=== PATIENT | male | born 1970 | race Caucasian/White ===

== ENCOUNTER 2016-11-05 15:29 | Emergency (ER) | payer BC ==
[~2016-11-05] VITALS: Ht 182.9 cm; Wt 87.9 kg
[~2016-11-05 15:29] MED LIST: ALBUAER2 INH; CIPR-255 PO; FERR325T51 PO
[2016-11-05 15:39] VITALS: TEMP 36.8; Ht 182.9 cm; Wt 87.9 kg
[2016-11-05] MEDS ORDERED: VNTHFA/IN INH (15:50)
[2016-11-05] MEDS ORDERED: LORA-741 PO (15:52)
[2016-11-05] MEDS ORDERED: FEXO1TAB49 PO (15:52)
[2016-11-05] MEDS ORDERED: ZOLP5TAB PO (15:52)
--- NOTE | 2016-11-05 16:22 | EMERGENCY ROOM VISIT NOTE ---
ED Visit Note First contact with patient: 15:47 CHIEF COMPLAINT: Puncture wound left index finger HISTORY OF PRESENT ILLNESS: This 45-year-old male presents the ER with chief complaint of a puncture wound to his left index finger. The patient states that he was backing out a screw with a screwdriver and the screwdriver slipped off the screw any thinks it went through the distal portion of his left index finger. The patient states that it bled initially but it has now stopped. He has a slight tingling sensation in the tip of his finger. He thinks that the drill "bounced off the bone". She is tetanus is up-to-date. The patient is right-hand dominant. REVIEW OF SYSTEMS: 6 system review was performed and was negative unless stated otherwise in history of present illness. PMH: The patient is healthy; asthma, appendectomy, right thumb surgery, right knee surgery, anemia SOCIAL HISTORY: Patient lives with his family. The patient denies any tobacco use but admits to occasional alcohol use. PHYSICAL EXAM: Vital Signs: Were reviewed Reviewed Nurse's notes. GENERAL: 45- year-old male appears in no acute distress. MENTAL Status: Alert and oriented 3. LEFT INDEX FINGER: There is a small puncture wound on the on the medial palmar aspect which there is no active bleeding. There is a smaller puncture wound on the lateral without any active bleeding. The patient is able to flex and extend his finger without difficulty. EMERGENCY DEPARTMENT COURSE: The patient was evaluated. The patient was offered pain medication but declined. Wounds were thoroughly cleansed with normal saline. A bandage was applied. X-ray of the left index finger was ordered and interpreted by myself without any evidence of fracture or foreign body. The patient was informed of the findings. Antibiotic ointment and a bandage was applied. The patient was informed that he will be placed on Augmentin prophylactically. The patient was discharged home in stable condition DIAGNOSIS: Puncture wound of the left index finger DISCHARGE INSTRUCTIONS: Antibiotic ointment and a bandage for 2-3 days. Take Augmentin as prescribed. Any signs of infection, follow-up with your family doctor or return to ER. Current/Historical Medications Scheduled Fexofenadine Hcl (Helen Allergy), 1 TAB PO DAILY Lorazepam (Ativan), 0.5 MG PO PRN UD Scheduled PRN Albuterol Hfa (Ventolin Hfa), 2 PUFFS INH QID PRN for SOB/Wheezing Zolpidem Tartrate (Ambien), 5 MG PO HS PRN for Sleep Allergies Coded Allergies: Cephalosporins (Verified Adverse Reaction, Mild, MEFOXIN-ITCHING (MAY BE DUE TO TORADOL,BODYWASH,DETERGENT), 11/05/16) Ketorolac (Verified Adverse Reaction, Mild, ITCHING/RASH (MAY BE DUE TO MEFOXIN,BODYWASH,DETERGENT), 11/05/16) Vital Signs Date Time Temp Pulse Resp B/P Pulse Ox O2 Delivery O2 Flow Rate FiO2 11/05/16 15:39 36.8 60 18 125/74 97 Room Air Departure Information Referrals Siddharth Turk M.D. (PCP) Patient Instructions My [facility]
[2016-11-05] MEDS ORDERED: AMOX875T PO (16:24)
[2016-11-05 16:28] VITALS: BP 117/66; PULSE 56; O2SAT 94
--- NOTE | 2016-11-05 16:37 | DIAGNOSTIC IMAGING REPORT ---
LEFT FINGER(S) MIN 2 VIEWS ROUTINE CLINICAL HISTORY: Puncture wound left index finger COMPARISON: None FINDINGS: Alignment of the left second finger is anatomic. There is no acute fracture or radiopaque foreign body. A bandage is noted on the second digit. A 4 mm lucency within the distal aspect of the proximal phalanx is of doubtful significance. IMPRESSION: No acute fracture or radiopaque foreign body within the left second finger. Electronically signed by: Juan Billings M.D. 11/05/2016 4:35 PM Dictated Date/Time: 11/05/2016 4:33 PM
== END 2016-11-05 16:29 | disposition home or self-care (01) ==
LOC: C.EDB 15:31 → C.EDD 16:29
DX: S61.231A Puncture wound without foreign body of left index finger without damage to nail, initial encounter (principal); W29.8XXA Contact with other powered hand tools and household machinery, initial encounter; J45.909 Unspecified asthma, uncomplicated; Z90.49 Acquired absence of other specified parts of digestive tract

== ENCOUNTER → 2017-11-16 | Day surgery (SDC) | payer OTHER ==
[2017-11-10 12:37] VITALS: Ht 182.9 cm; Wt 84.1 kg
[~2017-11-16] VITALS: Ht 182.9 cm; Wt 84.1 kg
[~2017-11-16] MED LIST changes: -ALBUAER2 INH; +ATROPINE SULFATE 0.1 MG/ML 5ML SYR IV PRN; +BUPIVACAINE/EPINEPHRINE 0.25% 1:200,000 30 ML VIAL ONE; +CEFAZOLIN 2000MG IV PUSH 10 ML IV SCH; -CIPR-255 PO; +CLINDAMYCIN PHOS 150 MG/ML 2 ML VIAL IV SCH; +DEXAMETHASONE SOD INJ 4 MG/ML VIAL ONE; +EpHEDrine SULFATE INJ 50 MG/ML AMP IV PRN; +EpINEphrine INJ 1MG/ML AMP 1 MG/ML AMP ONE; +FENTANYL CITRATE INJ 50 MCG/1 ML 2 ML VIAL IV PRN; +FENTANYL CITRATE INJ 50 MCG/1 ML 2 ML VIAL ONE; -FERR325T51 PO; +GLYCOPYRROLATE INJ 0.2 MG/ML VIAL ONE; +KETO10TA PO; +LACTATED RINGER'S 1000ML 1,000 ML IV SCH; +LIDOCAINE HCL 2% 2 ML VIAL (20MG/ML) ONE; +LORA-741 PO; +MIDAZOLAM HCL 1 MG/ML 2ML VIAL ONE; +MULTTAB58 PO; +NEOSTIGMINE METHYLSULFATE 5 MG/5 ML SYR ONE; +ONDANSETRON INJ 2 MG/ML 2 ML VIAL IV PRN; +ONDANSETRON INJ 2 MG/ML 2 ML VIAL ONE; +OXYC-57 PO; +OXYCODONE/ACETAMINOPHEN 5-325 TAB PO PRN; +PROPOFOL IV EMULSION 10 MG/ML 20 ML VIAL IV ONE; +ROPIVACAINE 0.5% 5 MG/ML 30 ML VIAL ONE; +SODIUM CHLORIDE 0.9% 1000ML 1,000 ML IV SCH; +VNTHFA/IN INH; +ZOLP5TAB PO
--- NOTE | 2017-11-16 12:32 | History & Physical Bridge - SC ---
H&P Re-Evaluation Bridge Note: I have examined the patient, reviewed the History & Physical and in the interval since the performance of the History & Physical I have noted the following changes of clinical significance: No changes noted
--- NOTE | 2017-11-16 16:08 | [facility] Post Operative Brief Note ---
Immediate Operative Summary Operative Date Nov 16, 2017. Pre-Operative Diagnosis Right Shoulder Detachment of Glenoid Labrum Post-Operative Diagnosis Same Procedure(s) Performed Right Shoulder Arthroscopic Posterior Labral Repair Surgeon Dr. Clark Dust Box Worker Surgeon(s) Stephanie Walden PA-C Estimated Blood Loss 5ml Findings Consistent with Post-Op Diagnosis Specimens None Drains None Anesthesia Type General Regional Complication(s) none Disposition Disposition: Recovery Room / PACU
--- NOTE | 2017-11-16 16:25 | Discharge Instructions-SurgCtr ---
Discharge Instructions Date of Service Nov 16, 2017. Visit Reason for Visit: Right Shoulder Detachment Of Glenoid Labrum Discharge Discharge Diagnosis / Problem: SAME ABOVE Discharge Goals Goal(s): Decrease discomfort, Improve function Activity Recommendations Activity Limitations: as noted below Lifting Limitations: until after follow-up appointment Exercise/Sports Limitations: until after follow-up appointment Shower/Bathe: tomorrow Anesthesia . Post Anesthesia Instructions: If you have had General Anesthesia or IV Sedation: * Do not drive today. * Resume driving when surgeon permits. * Do not make important decisions or sign legal documents today. * Call surgeon for: 1. Temperature elevations greater than 101 degrees F. 2. Uncontrollable pain. 3. Excessive bleeding. 4. Persistent nausea and vomiting. 5. Medication intolerance (nausea, vomiting or rash). * For nausea and vomiting use only clear liquids such as: tea, soda, bouillon until nausea subsides, then gradually increase diet as tolerated. * If you have any concerns or questions, call your surgeon's office. If physician is unavailable and it is an emergency, call 911 or go to the nearest emergency room. . Instructions / Follow-Up Instructions / Follow-Up MEDICATIONS: * Resume previous medications unless instructed otherwise by your surgeon. * Always take pain medication on a full stomach or with food to avoid upset stomach. * Do not drink alcohol or drive while taking narcotics. * Ibuprofen or Tylenol may be taken if narcotic not needed. SPECIAL CARE INSTRUCTIONS: __ None _X_ Keep extremity elevated and iced x 48 hours; apply ice 20-30 minutes 8-10 times/day. May remove at night. _X_ Sling (MAY REMOVE AFTER 48 HOURS ONLY TO SHOWER AND THERAPY) _X_24 hrs/day __ Remove at night __ Shoulder Immobilizer __ 24 hrs/day __ Remove at night _x_ Dressing __ Maintain until seen in office, may shower with plastic over site _x_ Remove dressings in 24-48 hours and then may shower _x_ Cover incisions with band-aids after showering __ Do not remove steri-strips Call physician if chills or temperature rises above 102 degrees or pain unrelieved by prescribed pain medications at . . Diet Recommendations Home Diet: no limitations Fluid Restriction: None Procedures Procedures Performed: Right Shoulder Arthroscopic Posterior Labral Repair Pending Studies Studies pending at discharge: no Work Instructions Return To Work: after follow-up Medical Emergencies . Who to Call and When: Medical Emergencies: If at any time you feel your situation is an emergency, please call 911 immediately. . Non-Emergent Contact Non-Emergency issues call your: Primary Care Provider Call Non-Emergent contact if: you have a fever, temperature is above 101.5 . . "Provider Documentation" section prepared by Bebeto Walden. .
[2017-11-16 17:09] VITALS: TEMP 36.6
[2017-11-16 17:52] VITALS: BP 131/81; PULSE 61; O2SAT 99
--- NOTE | 2017-11-16 17:57 | Anesthesia Progress Nt - [facility] ---
Anesthesia Post Op Note Date & Time Nov 16, 2017 at 17:57 Vital Signs Pain Intensity: 1 Vital Signs Past 12 Hours Date Time Temp Pulse Resp B/P (MAP) Pulse Ox O2 Delivery O2 Flow Rate FiO2 11/16/17 17:52 61 16 131/81 (98) 99 Room Air 11/16/17 17:09 36.6 61 16 141/88 (105) 100 Room Air 11/16/17 17:01 59 9 11/16/17 17:01 58 9 140/84 98 11/16/17 16:58 36.3 59 12 140/84 97 Room Air 11/16/17 16:56 73 14 139/85 97 11/16/17 16:56 70 14 11/16/17 16:51 67 14 144/88 100 11/16/17 16:51 67 14 11/16/17 16:46 63 13 146/79 100 11/16/17 16:46 63 13 11/16/17 16:41 72 14 11/16/17 16:41 72 14 150/83 100 11/16/17 16:36 150/83 11/16/17 16:31 73 9 11/16/17 16:31 73 9 100 11/16/17 16:30 147/73 11/16/17 16:26 70 20 140/69 96 11/16/17 16:26 71 20 11/16/17 16:23 141/87 11/16/17 16:23 36.6 77 12 141/87 96 Mask 6 11/16/17 15:10 0 11/16/17 15:06 130/72 11/16/17 15:02 62 15 100 11/16/17 15:02 63 16 100 11/16/17 15:01 130/72 11/16/17 14:57 70 24 99 11/16/17 14:57 68 11/16/17 14:56 128/75 11/16/17 14:55 64 16 128/75 (92) 100 Mask 4 11/16/17 14:47 60 11/16/17 14:47 73 11/16/17 14:42 61 11/16/17 14:32 72 11/16/17 14:32 57 11/16/17 14:27 63 11/16/17 12:41 36.9 67 16 109/74 (86) 97 Room Air Notes Mental Status: alert / awake / arousable, participated in evaluation Pt Amnestic to Procedure: Yes Nausea / Vomiting: adequately controlled Pain: adequately controlled Airway Patency, RR, SpO2: stable & adequate BP & HR: stable & adequate Hydration State: stable & adequate Anesthetic Complications: no major complications apparent
--- NOTE | 2017-11-16 20:33 | OPERATIVE REPORT ---
DATE OF OPERATION: 11/16/2017 PREOPERATIVE DIAGNOSIS: Posterior labral tear of the right shoulder. POSTOPERATIVE DIAGNOSIS: Same. PROCEDURE: Right shoulder diagnostic arthroscopy with limited debridement and posterior labral repair. SURGEON: Rudi Clark DO. SUPERVISOR PRE WAVE: Jake Walden PA-C, whose assistance was necessary for positioning of the arm and helping with arthroscopic instrumentation and closure. ANESTHESIA: General with a right interscalene nerve block. COMPLICATIONS: None. CONDITION: Stable to PACU. INDICATIONS: Saleem is a pleasant 46-year-old male who presented to my office with complaints of several year history of right shoulder pain. He was able to posteriorly subluxate his shoulder voluntarily. He was also having pain holding heavy objects away from his body. MRI and clinical examination were diagnostic for posterior labral tear. After failing conservative treatment, he elected to undergo arthroscopy. OPERATION AND FINDINGS: On 11/16/2017, he arrived at [facility] for the above procedure. He was seen in the preoperative holding area and the operative extremity was identified and signed. He was given preoperative antibiotic and a right interscalene nerve block. He was taken back to the operating room, laid on the table in supine position and put under general anesthesia. He was then put in the lateral decubitus position, the right shoulder was prepped and draped in sterile fashion. Time-out was done and the patient and operative extremity was properly identified. The right arm was brought out through an Arthrex 3-point distracter. A scope was placed in the posterior portal. Diagnostic arthroscopy showed no cartilage damage to the humeral head or the glenoid. The supraspinatus, infraspinatus, teres minor and subscapularis were all checked and intact. There was significant fraying of the posterior labrum. Posterior superior labrum was detached from the glenoid. A 7 mm cannula was placed in the anterior portal. The scope was then placed in the anterior portal and continued diagnostic arthroscopy confirmed a tearing of the posterior superior labrum. A 7 mm cannula was placed in the posterior portal. A shaver was used to do a limited debridement of the labrum to debride it back to stable margins. The posterior superior labrum was detached from the glenoid. A percutaneous 5 mm cannula was placed. The glenoid was then prepared with a curette and a ball rasp to take it down the bleeding bone. The labrum was then fixed with Arthrex 2.9 mm PushLock anchors and suture tapes in a luggage tag fashion. One anchor was placed at the 1 o'clock position and another anchor was placed at 2:30 position. This completed the repair of the tear. Multiple pictures were taken. Arthroscopic instruments were then removed from the shoulder. Portal sites were closed with 3-0 nylon. He was then placed in a soft dressing and regular arm sling. He was then extubated, transferred to a litter and taken to the postanesthesia care unit in stable condition. He tolerated the procedure well. I attest to the content of the Intraoperative Record and any orders documented therein. Any exception s are noted below.
== END | disposition home or self-care (01) ==
LOC: X.SURG 12:24
PROVIDERS: ATTEND Orthopaedic Surgery
DX: M24.111 Other articular cartilage disorders, right shoulder (principal); Z80.0 Family history of malignant neoplasm of digestive organs; J45.909 Unspecified asthma, uncomplicated

== ENCOUNTER 2020-04-29 17:50 | Inpatient (IN) ==
--- OUTSIDE RECORDS SUMMARY | 2020-04-29 17:52 | External Medical Summary | Continuity of Care Document ---
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
--- OUTSIDE RECORDS SUMMARY | 2020-04-29 17:53 | External Medical Summary | Continuity of Care Document ---
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
[2020-04-29] MEDS ORDERED: ONDANSETRON INJ 2 MG/ML 2 ML VIAL IV STA (18:17)
[2020-04-29] MEDS ORDERED: SODIUM CHLORIDE 0.9% 1000ML 1,000 ML IV ONE (18:17)
[2020-04-29] MEDS ORDERED: HYDROmorphone INJ 1 MG/ML SYRINGE IV STA (18:31)
--- NOTE | 2020-04-29 19:04 | Emergency Department Note ---
History of Present Illness General Chief Complaint: Abnormal Labs/Diagnostic Testing Stated Complaint: REFERRED FOR ABNORMAL CT SCAN Time Seen by Provider: 04/29/20 18:17 History of Present Illness Provider Complaint: abdominal pain Onset (ago): 3 day(s) Pain Consistency: constant Location: RUQ and epigastric Radiation: back Migration to: no migration Severity: moderate Maximum Pain Intensity: 7 Current Pain Intensity: 9 Quality: + stabbing and + sharp Relieved By: + nothing Exacerbated By: + nothing Associated Symptoms: + nausea and + chills; no vomiting, no fever, no dysuria, no hematemesis, no hematochezia, no melena and no hematuria Patient states he had an outpatient appointment with his PCP today who ordered an outpatient blood work and CAT scan which showed he had pancreatitis and subsequently came to the emergency department. He states he drinks approximately 1 beer per day. Home Medications Home Medications Medication Instructions Recorded Confirmed Type albuterol sulfate [ProAir HFA] 2 puff INHALATION QID PRN 11/24/18 11/24/18 History lorazepam 0.5 mg PO DAILY PRN 11/24/18 11/24/18 History ondansetron 4 mg PO Q8H PRN #30 tab 11/24/18 Rx Allergies Allergy/AdvReac Type Severity Reaction Status Date / Time Cephalosporins AdvReac Mild MEFOXIN-ITCHING Verified 11/24/18 19:17 (MAY BE DUE TO TORADOL,BODYWASH,DETERGENT) ketorolac AdvReac Mild ITCHING/RASH Verified 11/24/18 19:17 (MAY BE DUE TO MEFOXIN,BODYWASH,DETERGENT) Past Med/Surg History Medical History (Updated 04/29/20 @ 19:40 by Kirk Sandhu) Colitis (Acute) No pertinent family history No significant past medical history Surgical History (Updated 11/24/18 @ 18:55 by Gerda Olsen) Hx of appendectomy (Resolved) Social History Feels Safe at Home: Yes Smoking Status: Never smoker Review of Systems A total of 10 systems reviewed and were otherwise negative Physical Exam Vital Signs: Vital Signs - 24 hr 04/29/20 17:55 Temperature 36.8 C Temperature Source Oral Pulse Rate 72 Respiratory Rate 20 Respiratory Effort / Characteristics Non-Labored Sponta neous Respiratory Depth Normal Respiratory Patter n Regular Blood Pressure 139/82 Blood Pressure Olga n 101 Blood Pressure Pos ition Sitting Pulse Oximetry 99 Oxygen Delivery Me thod Room Air Sepsis Recent Feve r Within 48 Hours No Sepsis New/Unexpla ined Change in Men bryce Status No Sepsis Action Take n by Nursing No Action Required Physical Exam: Physical Exam GENERAL: He is oriented to person, place, and time. He appears well-developed and well-nourished. He does not appear distressed. HENT: Exam performed. - Head: Normocephalic and atraumatic. - Right Ear: External ear normal. No mastoid tenderness. - Left Ear: External ear normal. No mastoid tenderness. - Mouth/Throat: The oropharynx is clear and moist. No trismus in the jaw. No dental abscesses or uvula swelling. No oropharyngeal exudate or tonsillar abscesses. EYES: Conjunctivae and EOM are normal. Pupils are equal, round, and reactive to light. Right eye exhibits no discharge. Left eye exhibits no discharge. No scleral icterus. NECK: Normal range of motion. Neck supple. No JVD present. No spinous process tenderness present. No carotid bruit present. No rigidity. No tracheal deviation and normal range of motion present. No Brudzinski's sign and no Kernig's sign noted. CV: Normal rate, regular rhythm, normal heart sounds and intact distal pulses. There is no peripheral edema. Palpable radial pulses bue. PULM/CHEST: Effort normal and breath sounds normal. No respiratory distress. No stridor. He has no wheezes. He has no rales. - Chest Wall: He exhibits no tenderness. ABD: The abdomen is soft. Bowel sounds are normal. He has no distension. No mass is present. There is tenderness to palpation of the epigastric area. There is no rebound, no guarding, no Smart's sign and no tenderness at McBurney's point. Rovsig negative. MUSC/SKEL: Normal range of motion. There is no peripheral edema, tenderness or deformity. LYMPH: No cervical adenopathy. NEURO: He is alert and oriented to person, place, and time. He has normal strength. No cranial nerve deficit or sensory deficit. Coordination and gait normal. GCS eye subscore is 4. GCS verbal subscore is 5. GCS motor subscore is 6. Cerebellar tests wnl. SKIN: Skin is warm and dry. He is not diaphoretic. PSYCH: He has a normal mood and affect. Behavior is normal. Judgment and thought content normal. Course Course 1819: The patient was evaluated in room C6. A complete history and physical exam was performed. Patient was able to pull up his results on his phone. Patient had a CAT scan which showed "pancreatitis with reactive change to the adjacent colon". He had blood work which showed a sodium of 140, potassium 4.5, chloride 101, CO2 27, BUN 15, creatinine 1.1, glucose 111, AST 20, ALT 26, alk phos 89, and total bilirubin 0.4. at bedside states this patient is scheduled to have an ultrasound tomorrow however his pain was so bad he came to the emergency department today. We will plan on admitting the patient will obtain a ultrasound of his right upper quadrant to make sure there is no gallstones causing his pancreatitis. 193: Vital signs stable. Lipase 533. Ultrasound shows no gallstones or dilatation of ducts. Patient will be admitted for pancreatitis. Discussed with Dr. Cramer [facility] hospitalist who admitted the patient. Administered Medications Discontinued Medications Hydromorphone HCl (Dilaudid) 1 mg IV NOW STA Stop: 04/29/20 18:32 Last Admin: 04/29/20 18:56 Dose: 1 mg Documented by: [id number] Sodium Chloride (Nss 1000ml) 1,000 mls @ 999 mls/hr IV .Q1H1M ONE Stop: 04/29/20 19:17 Last Admin: 04/29/20 18:55 Dose: 999 mls/hr Documented by: [id number] Ondansetron HCl (Zofran) 4 mg IV NOW STA Stop: 04/29/20 18:18 Last Admin: 04/29/20 18:56 Dose: 4 mg Documented by: [id number] Medical Decision Making Laboratory Data Result diagrams: 04/29/20 19:00 04/29/20 19:00 Lab Results 04/29/20 04/29/20 Range/Units 19:00 19:00 WBC 11.53 H (4.8-10.8) K/uL RBC 4.40 L (4.7-6.1) M/uL Hgb 13.5 L (14.0-18.0) g/dL Hct 38.8 L (42-52) % MCV 88.2 (80-100) fL MCH 30.7 (25-34) pg MCHC 34.8 (32-36) g/dL RDW Std Deviation 40.8 (36.4-46.3) fL RDW Coeff of Kosta 12.7 (11.5-14.5) % Plt Count 166 (130-400) K/uL MPV 10.3 (7.4-10.4) fL Immature Gran % (Auto) 0.2 % Neut % (Auto) 79.4 % Lymph % (Auto) 12.1 % Bergen % (Auto) 7.5 % Eos % (Auto) 0.6 % Baso % (Auto) 0.2 % Neut # (Auto) 9.17 H (1.4-6.5) K/uL Lymph # (Auto) 1.39 (1.2-3.4) K/uL Bergen # (Auto) 0.86 H (0.11-0.59) K/uL Eos # (Auto) 0.07 (0-0.5) K/uL Baso # (Auto) 0.02 (0-0.2) K/uL Immature Gran # (Auto) 0.02 (0.00-0.02) K/uL Sodium 134 L (136-145) mmol/L Potassium 3.6 (3.5-5.1) mmol/L Chloride 102 (98-107) mmol/L Carbon Dioxide 28 (21-32) mmol/L Anion Gap 5.0 (3-11) BUN 12 (7-18) mg/dl Creatinine 1.08 (0.6-1.4) mg/dl Est Cr Clr Drug Dosing 92.8 ml/min Est GFR ( Amer) 94.2 Est GFR (Non-Af Amer) 81.3 BUN/Creatinine Ratio 11.2 (10-20) Glucose 119 H (70-99) mg/dl Calcium 8.6 (8.5-10.1) mg/dl Total Bilirubin 0.6 (0.2-1) mg/dl Direct Bilirubin < 0.1 (0-0.2) mg/dl AST 14 L (15-37) U/L ALT 30 (12-78) U/L Alkaline Phosphatase 88 (45-117) U/L Total Protein 7.7 (6.4-8.2) gm/dl Albumin 3.7 (3.4-5.0) gm/dl Lipase 566 H (73-393) U/L Imaging Data Radiologist's Impression: US gallbladder HISTORY: Pain. Nausea. ro rocio COMPARISON: None. FINDINGS: Normal gallbladder. Common bile duct 5 mm. Slight fatty replacement of the liver. Pancreas and right kidney are unremarkable. IMPRESSION: 1. Minimal fatty infiltration the liver. 2.. Otherwise negative study. ACT 112: Negative or not required by law. The above report was generated using voice recognition software. It may contain grammatical, syntax or spelling errors. Electronically signed by: Kamar Moreira M.D. 04/29/2020 7:17 PM Dictated: 04/29/201915 Transcribed: 04/29/201915 [facility] Narrative 1819: The patient was evaluated in room C6. A complete history and physical exam was performed. Patient was able to pull up his results on his phone. Patient had a CAT scan which showed "pancreatitis with reactive change to the adjacent colon". He had blood work which showed a sodium of 140, potassium 4.5, chloride 101, CO2 27, BUN 15, creatinine 1.1, glucose 111, AST 20, ALT 26, alk phos 89, and total bilirubin 0.4. at bedside states this patient is scheduled to have an ultrasound tomorrow however his pain was so bad he came to the emergency department today. We will plan on admitting the patient will obtain a ultrasound of his right upper quadrant to make sure there is no gallstones causing his pancreatitis. 1937: Vital signs stable. Lipase 533. Ultrasound shows no gallstones or d ilatation of ducts. Patient will be admitted for pancreatitis. Discussed with Dr. Shoaib Villa hospitalist who admitted the patient. Impression & Plan Acute pancreatitis Discharge Plan Visit Data Chief Complaint: Abnormal Labs/Diagnostic Testing Stated Complaint: REFERRED FOR ABNORMAL CT SCAN ED Provider: Kirk Sandhu Discharge Problem: Acute pancreatitis Patient Disposition: Being Evaluated by Hospitalist Forms Stand Alone Forms: [employer] [facility] [employer] Prescriptions Prescriptions: No Action lorazepam 1 mg tablet 0.5 mg PO DAILY PRN (Reason: Anxiety) RF: 0 albuterol sulfate [ProAir HFA] 90 mcg/actuation HFA aerosol inhaler 2 puff Inhalation QID PRN (Reason: Shortness Of Breath) RF: 0 ondansetron 4 mg tablet,disintegrating 4 mg PO Q8H PRN (Reason: nausea and vomiting) Qty: 30 RF: 0 Referrals Referrals: Siddharth Turk MD [Primary Care Provider] - Discharge Problem: Acute pancreatitis Qualifiers: Pancreatitis type: unspecified pancreatitis type Acute pancreatitis complication: unspecified Qualified Code(s): K85.90 - Acute pancreatitis without necrosis or infection, unspecified
[2020-04-29 19:08] LABS: Basophils # (auto) 0.02 K/uL (0-0.2); Basophils % (auto) 0.2 %; Eosinophils # (auto) 0.07 K/uL (0-0.5); Eosinophils % (auto) 0.6 %; Hematocrit (blood only) 38.8 % (42-52); Hemoglobin 13.5 g/dL (14.0-18.0); Immature Granulocytes # (auto) 0.02 K/uL (0.00-0.02); Immature Granulocytes % (auto) 0.2 %; Lymphocytes # (auto) 1.39 K/uL (1.2-3.4); Lymphocytes % (auto) 12.1 %; Mean Corpuscular Hemoglobin 30.7 pg (25-34); Mean Corpuscular Hgb Conc 34.8 g/dL (32-36); Mean Corpuscular Volume 88.2 fL (80-100); Mean Platelet Volume 10.3 fL (7.4-10.4); Monocytes # (auto) 0.86 K/uL (0.11-0.59); Monocytes % (auto) 7.5 %; Neutrophils # (auto) 9.17 K/uL (1.4-6.5); Neutrophils % (auto) 79.4 %; Platelet Count 166 K/uL (130-400); RDW Coefficient of Variation 12.7 % (11.5-14.5); RDW Standard Deviation 40.8 fL (36.4-46.3); White Blood Count 11.53 K/uL (4.8-10.8)
--- NOTE | 2020-04-29 19:18 | Ultrasound Report ---
US gallbladder HISTORY: Pain. Nausea. ro rocio COMPARISON: None. FINDINGS: Normal gallbladder. Common bile duct 5 mm. Slight fatty replacement of the liver. Pancreas and right kidney are unremarkable. IMPRESSION: 1. Minimal fatty infiltration the liver. 2.. Otherwise negative study. ACT 112: Negative or not required by law. The above report was generated using voice recognition software. It may contain grammatical, syntax or spelling errors. Electronically signed by: Kamar Moreira M.D. 04/29/2020 7:17 PM
[2020-04-29 19:24] LABS: Alanine Aminotransferase 30 U/L (12-78); Albumin Level 3.7 gm/dl (3.4-5.0); Aspartate Aminotransferase 14 U/L (15-37); BUN Creatinine Ratio 11.2 (10-20); Bilirubin Direct < 0.1 mg/dl (0-0.2); Blood Urea Nitrogen 12 mg/dl (7-18); Calcium 8.6 mg/dl (8.5-10.1); Carbon Dioxide 28 mmol/L (21-32); Chloride 102 mmol/L (98-107); Creatinine Clr Calc Pharmacy 92.8 ml/min; Est GFR (African American) 94.2; Est GFR (Non-African American) 81.3; Glucose 119 mg/dl (70-99); Lipase 566 U/L (73-393); Potassium 3.6 mmol/L (3.5-5.1); Sodium 134 mmol/L (136-145)
[2020-04-29 19:27] LABS: Alkaline Phosphatase 88 U/L (45-117); Bilirubin,Total 0.6 mg/dl (0.2-1); Total Protein 7.7 gm/dl (6.4-8.2)
--- NOTE | 2020-04-29 20:11 | History & Physical Report ---
Date of Service April 29, 2020 Assessment & Plan (1) Acute pancreatitis: -Admit to [facility] -Patient presenting from home with reports of abdominal pain; outpatient CT scan showing evidence of pancreatitis -In the ED, lipase 566, gallbladder ultrasound unremarkable -Etiology of pancreatitis unclear however possibly secondary to alcohol use (patient reports drinking 1 beer nightly about 5 to 6 days/week, last drink being 2 days ago) -Medications reviewed without identifiable cause -Check triglycerides in the a.m. -LFTs and gallbladder imaging unremarkable -Supportive care with n.p.o. and IVF -GI consult, input appreciated (2) DVT prophylaxis: -SCDs, ambulate History of Present Illness Chief Complaint: Abdominal pain Primary Care Provider: Siddharth Turk MD 49-year-old male with PMH prediabetes, intermittent asthma, environmental allergies, no problems to below who presents to the ED for evaluation abdominal pain. Patient reports his symptoms began about 2 days ago. He reports the pain has mostly been located in his epigastric area with some radiation around the ribs and into his back. Initially, symptoms were mild however have been progressively getting worse. Patient was seen by PCP this morning and CT scan was ordered that showed signs of pancreatitis. Patient reports his pain significantly worsened throughout the day today. Patient reports nausea however no vomiting. Denies bright red bleeding per rectum or dark tarry stools. No fevers or chills. Patient reports 1 beer per night, about 5-6 nights per week. Last drink being 2 days ago. Patient denies any new medications. No chest pain or shortness of breath. Denies lightheadedness, dizziness, diaphoresis, syn copal events. No urinary symptoms. In the ED, labs show mildly elevated lipase at 566. Gallbladder ultrasound was unremarkable. Patient received IV Dilaudid, IV Zofran, IVF. Allergies Allergy/AdvReac Type Severity Reaction Status Date / Time Cephalosporins AdvReac Mild MEFOXIN-ITCHING Verified 04/29/20 20:49 (MAY BE DUE TO TORADOL,BODYWASH,DETERGENT) ketorolac AdvReac Mild ITCHING/RASH Verified 04/29/20 20:49 (MAY BE DUE TO MEFOXIN,BODYWASH,DETERGENT) Home Medications Home Medications Medication Instructions Recorded Confirmed Type albuterol sulfate [ProAir HFA] 2 puff INHALATION QID PRN 11/24/18 04/29/20 History azelastine 2 spray INTRANASAL HS 04/29/20 04/29/20 History cetirizine [Zyrtec] 10 mg PO HS 04/29/20 04/29/20 History ferrous sulfate [iron] 325 mg PO HS 04/29/20 04/29/20 History fluticasone propionate 1 spray INTRANASAL HS 04/29/20 04/29/20 History lorazepam 0.5 mg PO DAILY PRN 04/29/20 04/29/20 History zolpidem 10 mg PO HS PRN 04/29/20 04/29/20 History Past Med/Surg History Medical History Environmental allergies Eosinophilic esophagitis Intermittent asthma Prediabetes Surgical History H/O adenoidectomy H/O arthroscopic knee surgery History of arthroscopy of right shoulder Hx of appendectomy (Resolved) Family History Mother Lung cancer Social History Preferred Language: Palestinian Communication Ability: Effective Director Of Infection Prevention Required: No Beliefs That Will Affect Care: None Current Living Situation: Spouse Other Information That Helps Us Care for You: No Feels Safe at Home: Yes Safety Concerns: Feels Safe At This Time Smoking Status: Never smoker Do You Dip or Chew Tobacco: No ; Second Hand E xposure: No ; Hx Alcohol Use: Yes Alcohol type: beer Alcohol Intake Frequency: Weekly Hx Substance Use: No Review of Systems Review of Systems: ROS per HPI, all other systems reviewed and negative Physical Exam Physical Exam: please refer to Dr. Jacob's addendum for physical exam Results & Data Results & Data ([facility]) Vital Signs (Past 12 Hours) Vital Signs Temp Pulse Resp BP Pulse Ox 04/29/20 17:55 36.8 C 72 20 139/82 99 Laboratory Results Short CBC 04/29/20 Range/Units 19:00 WBC 11.53 H (4.8-10.8) K/uL Hgb 13.5 L (14.0-18.0) g/dL Hct 38.8 L (42-52) % Plt Count 166 (130-400) K/uL BMP 07/15/20 19:00 Sodium 134 L Potassium 3.6 Chloride 102 Carbon Dioxide 28 BUN 12 Creatinine 1.08 Glucose 119 H Calcium 8.6 Liver Function 04/29/20 Range/Units 19:00 Total Bilirubin 0.6 (0.2-1) mg/dl Direct Bilirubin < 0.1 (0-0.2) mg/dl AST 14 L (15-37) U/L ALT 30 (12-78) U/L Alkaline Phosphatase 88 (45-117) U/L Albumin 3.7 (3.4-5.0) gm/dl Diagnostic Findings CT ABD/PELVIS IMPRESSION (performed at [facility] 04/29/2020): Inflammatory Stranding within the Left Upper Quadrant Involving the Pancreatic Tail and Colon at the Splenic Flexure. Favor Pancreatitis with Reactive Change of the Adjacent Colon. GALLBLADDER ULTRASOUND IMPRESSION: 1. Minimal fatty infiltration the liver. 2.. Otherwise negative study. Supervising Physician Co-Signing Physician Notes Patient is a 49-year-old male with history of prediabetes, asthma, allergies and other medical problems presents with history of abdominal pain since 2 days duration. He reports associated nausea but no vomiting. He admits to noticing a low-grade fever today. His outpatient CAT scan suggestive of acute pancreatitis. His lipase is noted to be 566. Gallbladder ultrasound showed minimal fatty infiltration of the liver. Patient admits to drinking alcohol--1 beer per night. Denies any history of pancreatitis in the past. Please review HPI for complete details of presentation Physical Exam: Vitals signs as noted above General Appearance:Moderately built and nourished, no apparent distress Head: normocephalic, Atraumatic Eyes: normal inspection, EOMI, PERRL Neck: supple, Trachea midline Respiratory/Chest: Normal breath sounds, CTA, No accessory muscle use Cardiovascular: S1, S2, No murmur Abdomen/GI:Soft, tender RLQ and epigastric, no guarding or rigidity noted. Bowel sounds present Extremities/Musculoskelatal:normal inspection, no edema Neurologic/Psych:AAOX3, grossly no focal neurological deficits Skin: normal color, warm Patient is admitted for management of acute pancreatitis. Likely secondary to alcohol use Will check lipid panel in a.m. LFTs within normal limits Consulted GI No obvious medications contributing to pancreatitis noted. Agree with bowel rest, IV fluids, pain control. Asthma No signs of exacerbation Continue home inhalers Mild leukocytosis Likely secondary to above No obvious source of infection Monitor I personally reviewed the record. Patient is interviewed and examined at bedside. Patient's care is coordinated with Ely Wagoner HR ADMINISTRATOR. Please refer to the documentation above for details of patient's presentation and for discussion of other issues. (1) Acute pancreatitis Acute pancreatitis complication: unspecified Pancreatitis type: unspecified pancreatitis type Qualified Code(s): K85.90 - Acute pancreatitis without necrosis or infection, unspecified
[2020-04-29] MEDS ORDERED: ONDANSETRON INJ 2 MG/ML 2 ML VIAL IV PRN (21:28)
[2020-04-29] MEDS: SODIUM CHLORIDE 0.9% 1000ML 1,000 ML IV SCH (21:43)
[2020-04-29] MEDS: MoRPHine SULFATE 4 MG/ML 1 ML CARP\\VIAL IV PRN (21:54)
[2020-04-29] MEDS: PANTOprazole 40 MG TAB PO SCH (22:16)
[2020-04-29] MEDS: ACETAMINOPHEN 325 MG TAB PO PRN (23:54)
[2020-04-30] MEDS: MoRPHine SULFATE 4 MG/ML 1 ML CARP\\VIAL IV PRN ×2 (02:15→07:43)
[2020-04-30] MEDS: SODIUM CHLORIDE 0.9% 1000ML 1,000 ML IV SCH ×2 (04:25→11:06)
[2020-04-30] MEDS: OXYCODONE HCL IR 5 MG TAB (IMMEDIATE RELEASE) PO PRN (04:29)
[2020-04-30] MEDS: PANTOprazole 40 MG TAB PO SCH (07:45)
[2020-04-30 09:15] LABS: Mean Corpuscular Hemoglobin 31.2 pg (25-34); Mean Corpuscular Volume 89.1 fL (80-100); Platelet Count 175 K/uL (130-400); RDW Coefficient of Variation 12.8 % (11.5-14.5); RDW Standard Deviation 40.9 fL (36.4-46.3); Red Blood Count 4.49 M/uL (4.7-6.1)
[2020-04-30 09:38] LABS: Albumin Level 3.3 gm/dl (3.4-5.0); BUN Creatinine Ratio 9.5 (10-20); Calcium 8.1 mg/dl (8.5-10.1); Creatinine Clr Calc Pharmacy 102.3 ml/min; Est GFR (Non-African American) 91.4; Potassium 4.1 mmol/L (3.5-5.1)
[2020-04-30 09:41] LABS: Albumin Globulin Ratio 0.8 (0.9-2); Bilirubin,Total 0.8 mg/dl (0.2-1); Globulin 4.1 gm/dl (2.5-4.0); Total Protein 7.4 gm/dl (6.4-8.2)
--- NOTE | 2020-04-30 10:15 | Gastrointestinal Consultation ---
Date of Consultation April 30, 2020 Assessment & Plan (1) Acute pancreatitis: 49 year old male with history of unspecified ALFONSO s/p negative EGD/Colon/VCE in 2012 and 2014 admitted w/ abnormal CTAP inflammatory stranding within the left upper quadrant involving the pancreatic tail and colon at the splenic flexure, favor pancreatitis with reactive change of the adjacent colon His onset and symptoms are generalized abdominal pain, food aversion, nausea w/o vomting and fevers at home Treat as pancreatitis NPO LR 200 mL/hr for 48 hours Analgesia PRN Antietmics PRN Will need OP colonoscopy and EUS in about 4-6 weeks w/ Dr. Glez Thank you for allowing us to participate in the care of this patient. Please call with any acute changes, questions or concerns. Please see addendum below with additional recommendation from my supervising physician. Supervising Physician Co-Signing Physician Notes I saw and evaluated the patient. He presents with mild elevation of his lipase inflammatory changes in the pancreatic tail and in the left colon. He notes that his pain is really unchanged since admission. Physical examination No obvious distress No scleral icterus Mild left-sided tenderness Impression: Patient presenting with inflammatory changes in the pancreatic tail and the left colon. Not certain if this is result of pancreatitis causing inflammatory changes at the splenic flexure or perhaps reticulitis causing inflammatory changes in the pancreatic tail. Patient is a non-smoker and is started no recent medications and drinks only 1 alcoholic beverage per day. As result the etiology to his pancreatic inflammation remains unclear. I would suggest further evaluation with a an MRCP if negative we would then offer outpatient endoscopic ultrasound in 4 to 6 weeks in addition to a colonoscopy to relook at his colon. In the meantime wewould suggest IV hydration, a clear liquid diet and continued antibiotic coverage. I would also suggest trying Bentyl 10 mg twice daily as this might help with his abdominal discomfort. For work-up of idiopathic pancreatitis I would also suggest an ALMA, immunoglobulin subclasses, and triglyceride level. History of Present Illness Reason for Consultation: Pancreatitis Requesting Physician: Oz Attending Physician: Joy Clinton, DO History of Present Illness 49 year old male w/ history of ALFONSO, EOE and others below admitted as OP CTAP showed pancreaitits. Pt was seen and evaluated, chart reviewed. He suggests about 1 week ago now he developed generalized abd pain. Nonspecific. Worsened in the past 24 hours. Associated with nausea. No vomiting. No change in BM. no black or bloody stools. No new medications Uses ETOH daily but rarely every has more than 1 drink. No weight loss. No new meds ABD US 2019: Normal gallbladder. Common bile duct 5 mm. Slight fatty replacement of the liver. Pancreas and right kidney are unremarkable. CTAP 2019: Inflammatory stranding within the left upper quadrant involving the pancreatic tail and colon at the splenic flexure. Favor pancreatitis with reactive change of the adjacent colon. VCE 2014: normal Colon 2014: The entire examined colon is normal to the terminal ileum, with retroflexed views of the ascending colon and rectum. - No specimens collected. EGD 2014: normal upper third of esophagus, middle third of esophagus and lower third of esophagus. Biopsied. - Z-line regular, 45 cm from the incisors. Biopsied. - Normal stomach. - Normal examined duodenum. Biopsied. - Normal examined jejunum. Biopsied. Allergies Allergy/AdvReac Type Severity Reaction Status Date / Time Cephalosporins AdvReac Mild MEFOXIN-ITCHING Verified 04/29/20 20:49 (MAY BE DUE TO TORADOL,BODYWASH,DETERGENT) ketorolac AdvReac Mild ITCHING/RASH Verified 04/29/20 20:49 (MAY BE DUE TO MEFOXIN,BODYWASH,DETERGENT) Home Medications Home Medications Medication Instructions Recorded Confirmed Type albuterol sulfate [ProAir HFA] 2 puff INHALATION QID PRN 11/24/18 04/29/20 History azelastine 2 spray INTRANASAL HS 04/29/20 04/29/20 History cetirizine [Zyrtec] 10 mg PO HS 04/29/20 04/29/20 History ferrous sulfate [iron] 325 mg PO HS 04/29/20 04/29/20 History fluticasone propionate 1 spray INTRANASAL HS 04/29/20 04/29/20 History lorazepam 0.5 mg PO DAILY PRN 04/29/20 04/29/20 History zolpidem 10 mg PO HS PRN 04/29/20 04/29/20 History Patient History Medical History Environmental allergies Eosinophilic esophagitis Intermittent asthma Prediabetes Surgical History H/O adenoidectomy H/O arthroscopic knee surgery History of arthroscopy of right shoulder Hx of appendectomy (Resolved) Family History Mother Lung cancer Social History Preferred Language: Indonesian Communication Ability: Effective Headhunter Required: No Beliefs That Will Affect Care: None Current Living Situation: Spouse Other Information That Helps Us Care for You: No Feels Safe at Home: Yes Safety Concerns: Feels Safe At This Time Smoking Status: Never smoker Do You Dip or Chew Tobacco: No ; Second Hand Exposure: No ; Hx Alcohol Use: Yes Alcohol type: beer Alcohol Intake Frequency: Weekly Hx Substance Use: No Review of Systems Constitutional: + fever, + fatigue and + anorexia; no chills Respiratory: no cough and no dyspnea Cardiovascular: no chest pain and no dyspnea Gastrointestinal: + abdominal pain and + nausea; no change in bowel habits, no blood in stools and no melena Physical Exam Constitutional: well developed and well nourished; no acute distress and not ill appearing Neck: trachea midline Gastrointestinal (Abdomen): Percussion/Palpation: + abdomen tender and abdomen soft; no guarding and abdomen not rigid Skin: no rashes, warm and dry Results & Data ([facility]) Vital Signs (Past 12 Hours) Vital Signs Temp Pulse Resp BP Pulse Ox 04/30/20 07:15 37.3 C 68 16 131/75 96 04/30/20 00:14 37.8 C H 73 14 132/73 98 Laboratory Results 04/30/20 04/30/20 04/29/20 Range/Units 08:38 08:38 19:00 WBC 12.90 H (4.8-10.8) K/uL RBC 4.49 L (4.7-6.1) M/uL Hgb 14.0 (14.0-18.0) g/dL Hct 40.0 L (42-52) % MCV 89.1 (80-100) fL MCH 31.2 (25-34) pg MCHC 35.0 (32-36) g/dL RDW Std Deviation 40.9 (36.4-46.3) fL RDW Coeff of Kosta 12.8 (11.5-14.5) % Plt Count 175 (130-400) K/uL MPV 10.0 (7.4-10.4) fL Immature Gran % (Auto) % Neut % (Auto) % Lymph % (Auto) % Lake % (Auto) % Eos % (Auto) % Baso % (Auto) % Neut # (Auto) (1.4-6.5) K/uL Lymph # (Auto) (1.2-3.4) K/uL Lake # (Auto) (0.11-0.59) K/uL Eos # (Auto) (0-0.5) K/uL Baso # (Auto) (0-0.2) K/uL Immature Gran # (Auto) (0.00-0.02) K/uL Sodium 139 134 L (136-145) mmol/L Potassium 4.1 3.6 (3.5-5.1) mmol/L Chloride 105 102 (98-107) mmol/L Carbon Dioxide 30 28 (21-32) mmol/L Anion Gap 4.0 5.0 (3-11) BUN 9 12 (7-18) mg/dl Creatinine 0.98 1.08 (0.6-1.4) mg/dl Est Cr Clr Drug Dosing 102.3 92.8 ml/min Est GFR ( Amer) 106.0 94.2 Est GFR (Non-Af Amer) 91.4 81.3 BUN/Creatinine Ratio 9.5 L 11.2 (10-20) Glucose 111 H 119 H (70-99) mg/dl Calcium 8.1 L 8.6 (8.5-10.1) mg/dl Total Bilirubin 0.8 0.6 (0.2-1) mg/dl Direct Bilirubin < 0.1 (0-0.2) mg/dl AST 12 L 14 L (15-37) U/L ALT 25 30 (12-78) U/L Alkaline Phosphatase 79 88 (45-117) U/L Total Protein 7.4 7.7 (6.4-8.2) gm/dl Albumin 3.3 L 3.7 (3.4-5.0) gm/dl Globulin 4.1 H (2.5-4.0) gm/dl Albumin/Globulin Ratio 0.8 L (0.9-2) Triglycerides 90 (0-150) mg/dl Cholesterol 157 (0-200) mg/dl LDL Cholesterol, Calc 95 mg/dl VLDL Cholesterol, Calc 18 mg/dl HDL Cholesterol 44 mg/dl Cholesterol/HDL Ratio 4 Lipase 234 566 H (73-393) U/L 04/29/20 Range/Units 19:00 WBC 11.53 H (4.8-10.8) K/uL RBC 4.40 L (4.7-6.1) M/uL Hgb 13.5 L (14.0-18.0) g/dL Hct 38.8 L (42-52) % MCV 88.2 (80-100) fL MCH 30.7 (25-34) pg MCHC 34.8 (32-36) g/dL RDW Std Deviation 40.8 (36.4-46.3) fL RDW Coeff of Kosta 12.7 (11.5-14.5) % Plt Count 166 (130-400) K/uL MPV 10.3 (7.4-10.4) fL Immature Gran % (Auto) 0.2 % Neut % (Auto) 79.4 % Lymph % (Auto) 12.1 % Lake % (Auto) 7.5 % Eos % (Auto) 0.6 % Baso % (Auto) 0.2 % Neut # (Auto) 9.17 H (1.4-6.5) K/uL Lymph # (Auto) 1.39 (1.2-3.4) K/uL Lake # (Auto) 0.86 H (0.11-0.59) K/uL Eos # (Auto) 0.07 (0-0.5) K/uL Baso # (Auto) 0.02 (0-0.2) K/uL Immature Gran # (Auto) 0.02 (0.00-0.02) K/uL Sodium (136-145) mmol/L Potassium (3.5-5.1) mmol/L Chloride (98-107) mmol/L Carbon Dioxide (21-32) mmol/L Anion Gap (3-11) BUN (7-18) mg/dl Creatinine (0.6-1.4) mg/dl Est Cr Clr Drug Dosing ml/min Est GFR ( Amer) Est GFR (Non-Af Amer) BUN/Creatinine Ratio (10-20) Glucose (70-99) mg/dl Calcium (8.5-10.1) mg/dl Total Bilirubin (0.2-1) mg/dl Direct Bilirubin (0-0.2) mg/dl AST (15-37) U/L ALT (12-78) U/L Alkaline Phosphatase (45-117) U/L Total Protein (6.4-8.2) gm/dl Albumin (3.4-5.0) gm/dl Globulin (2.5-4.0) gm/dl Albumin/Globulin Ratio (0.9-2) Triglycerides (0-150) mg/dl Cholesterol (0-200) mg/dl LDL Cholesterol, Calc mg/dl VLDL Cholesterol, Calc mg/dl HDL Cholesterol mg/dl Cholesterol/HDL Ratio Lipase (73-393) U/L (1) Acute pancreatitis Acute pancreatitis complication: unspecified Pancreatitis type: unspecified pancreatitis type Qualified Code(s): K85.90 - Acute pancreatitis without necrosis or infection, unspecified
[2020-04-30] MEDS: ACETAMINOPHEN 325 MG TAB PO PRN ×3 (11:07→23:38)
[2020-04-30] MEDS: LACTATED RINGER'S 1,000 ML IV SCH ×3 (12:23→21:56)
[2020-04-30] MEDS: HYDROmorphone INJ 0.5 MG/0.5 ML SYR IV PRN ×2 (13:37→19:53)
[2020-04-30] MEDS: metroNIDAZOLE 500 MG/100 ML BAG IV SCH ×2 (16:22→23:39)
[2020-04-30] MEDS: CIPROFLOXACIN / D5W 400 MG/200 ML BAG IV SCH (16:22)
--- NOTE | 2020-04-30 20:35 | Magnetic Resonance Report ---
MR MRCP CLINICAL HISTORY: pancreatitis COMPARISON STUDY: Biliary ultrasound dated 04/29/2020, CT scan dated 03/26/2014 FINDINGS: A breath-hold MRCP was performed. MIP images were acquired. No focal hepatic masses are visualized. There is no intrahepatic biliary ductal dilatation. The commo n bile duct measures 5 mm. There is a distal common bile duct meniscus sign, but no definite filling defects are visualized. No gallstones are evident. There is no evidence of pancreatic ductal dilatati on. The pancreatic tail appears edematous, and there is peripancreatic inflammatory changes. There is trace left perinephric fluid. IMPRESSION: 1. No gallstones identified 2. No evidence of biliary or pancreatic ductal dilatation 3. Linear cutoff of the distal common bile duct just proximal to the ampulla. While this can be seen in the presence of a distal calculus, a definite filling defect is not visualized. Addition there is no ductal dilatation. 4. Edematous pancreatic tail and peripancreatic inflammatory changes consistent with acute interstiti al pancreatitis ACT 112: Negative or not required by law. Electronically signed by: Rashad Taylor M.D. 04/30/2020 8:33 PM
--- NOTE | 2020-04-30 20:46 | Hospitalist Progress Note ---
Date of Service April 30, 2020 Assessment & Plan (1) Acute pancreatitis: Continue supportive care for severe pain, improved with switch to Dilaudid. Cont bowel rest for now. Fluids switched to LR. GI considering MRCP and if negative, then will pursue outpatient EUS in 6 weeks. Additional consideration is the colonic inflammation that may be reactive changes in setting of pancreatitis. He was recently put on Cipro and flagyl for a presumed acute diverticulitis. Will cont antibiotic coverage here now to prevent infection from microscopic bacterial translocation. Additional GI recommendations includes outpatient colonoscopy in 6 weeks. Trial of clears in am. Bentyl PRN (2) DVT prophylaxis: Lovenox Full Dispo-home when pain improved and tolerating PO Joy Clinton [facility] and Anticipated Discharge Date Admission Date: April 30, 2020 Subjective significant pain requiring upgrade to dilaudid. Reassessment later in the day proved dilaudid helped much and patient was able to get some rest. NPO, afebrile. GI consult with recs pending. Review of Systems Review of Systems: All systems reviewed & are unremarkable except as noted in Subjective Physical Exam Physical Exam: CONSTITUTIONAL: WNWD, vitals as above, generally well- appearing EYES: normal conjunctivae, no scleral icterus ENT: external ear and nose normal RESPIRATORY: clear to auscultation bilaterally, no crackles, rales or wheezes, normal respiratory effort CARDIOVASCULAR: regular rate and rhythm, S1 and 2 heard without murmurs, gallops or rubs, no JVD, no peripheral edema GASTROINTESTINAL: soft, nontender, nondistended MUSCULOSKELETAL: strength 5/5 throughout, head is normocephalic and atraumatic SKIN: warm and dry NEUROLOGIC: No facial palsy, no dysarthria. CN 2-12 grossly intact, normal cognition, normal speech, no tremor. No gross focal deficits. PSYCHIATRIC: alert cooperative and oriented to person, place and time. Results & Data Results & Data ([facility]) Vital Signs (Past 12 Hours) Vital Signs Temp Pulse Resp BP Pulse Ox 04/30/20 15:44 37.4 C 69 16 134/76 97 Laboratory Results Short CBC 04/30/20 Range/Units 08:38 WBC 12.90 H (4.8-10.8) K/uL Hgb 14.0 (14.0-18.0) g/dL Hct 40.0 L (42-52) % Plt Count 175 (130-400) K/uL BMP 04/30/20 08:38 Sodium 139 Potassium 4.1 Chloride 105 Carbon Dioxide 30 BUN 9 Creatinine 0.98 Glucose 111 H Calcium 8.1 L Liver Function 04/30/20 Range/Units 08:38 Total Bilirubin 0.8 (0.2-1) mg/dl AST 12 L (15-37) U/L ALT 25 (12-78) U/L Alkaline Phosphatase 79 (45-117) U/L Albumin 3.3 L (3.4-5.0) gm/dl Medications Administered Current Inpatient Medications Acetaminophen (Tylenol) 650 mg PO Q4H PRN PRN Reason: pain/fever Stop: 05/29/20 21:10 Last Admin: 04/30/20 19:22 Dose: 650 mg Documented by: Cetirizine HCl (Zyrtec) 10 mg PO HS SEBASTIÁN Stop: 05/30/20 20:59 Dicyclomine HCl (Bentyl) 10 mg PO TID SEBASTIÁN Stop: 05/30/20 20:59 Ferrous Sulfate (Feosol) 325 mg PO HS SEBASTIÁN Stop: 05/30/20 20:59 Fluticasone Propionate (Flonase) 1 sprays NA HS SEBASTIÁN Stop: 05/30/20 20:59 Hydromorphone HCl (Dilaudid) 0.5 mg IV Q4H PRN PRN Reason: Severe Pain Stop: 05/14/20 12:35 Last Admin: 04/30/20 19:53 Dose: 0.5 mg Documented by: Lactated Ringer's (Lr) 1,000 mls @ 200 mls/hr IV .Q5H SEBASTIÁN Stop: 05/30/20 11:59 Last Infusion: 04/30/20 20:45 Dose: 200 mls/hr Documented by: Ciprofloxacin (Cipro / D5w) 400 mg in 200 mls @ 100 mls/hr IV Q12H SEBASTIÁN; Protocol Stop: 05/10/20 15:59 Last Infusion: 04/30/20 18:34 Dose: Infused Documented by: Metronidazole (Flagyl) 500 mg in 100 mls @ 100 mls/hr IV Q8H SEBASTIÁN; Protocol Stop: 05/10/20 15:59 Last Infusion: 04/30/20 17:40 Dose: Infused Documented by: Miscellaneous (Order Awaiting Action) 1 ea N/A QS [facility] Stop: 05/30/20 00:00 Last Admin: 04/30/20 16:23 Dose: Not Given Documented by: Ondansetron HCl (Zofran) 4 mg IV Q6H PRN PRN Reason: Nausea Stop: 05/29/20 21:27 Last Admin: 04/30/20 19:22 Dose: 4 mg Documented by: Oxycodone HCl (Roxicodone Immediate Rel) 5 mg PO Q4H PRN PRN Reason: Pain Stop: 05/14/20 02:55 Last Admin: 04/30/20 04:29 Dose: 5 mg Documented by: Pantoprazole Sodium (Protonix) [facility] Stop: 05/29/20 21:34 Last Admin: 04/30/20 07:45 Dose: 40 mg Documented by: (1) Acute pancreatitis Acute pancreatitis complication: unspecified Pancreatitis type: unspecified pancreatitis type Qualified Code(s): K85.90 - Acute pancreatitis without necrosis or infection, unspecified
[2020-04-30] MEDS: FERROUS SULFATE 325 MG TAB PO SCH (20:48)
[2020-04-30] MEDS: CETIRIZINE HCL 10 MG TABLET PO SCH (20:48)
[2020-04-30] MEDS: FLUTICASONE PROPIONATE NA SPR 16 GM BTL SCH (20:48)
[2020-04-30] MEDS: DICYCLOMINE HCL 10 MG CAP PO SCH (20:48)
[2020-04-30] MEDS: ACETAMINOPHEN 1,000 MG/100 ML VIAL IV SCH (21:56)
[2020-05-01] MEDS: LACTATED RINGER'S 1,000 ML IV SCH ×4 (02:32→19:15)
[2020-05-01] MEDS: CIPROFLOXACIN / D5W 400 MG/200 ML BAG IV SCH ×2 (04:16→16:57)
[2020-05-01] MEDS: OXYCODONE HCL IR 5 MG TAB (IMMEDIATE RELEASE) PO PRN (04:22)
[2020-05-01] MEDS: ACETAMINOPHEN 1,000 MG/100 ML VIAL IV SCH ×2 (06:20→16:40)
[2020-05-01 07:11] LABS: Hemoglobin 12.5 g/dL (14.0-18.0); Mean Corpuscular Hgb Conc 34.7 g/dL (32-36); Mean Corpuscular Volume 89.3 fL (80-100); Mean Platelet Volume 9.8 fL (7.4-10.4); Platelet Count 148 K/uL (130-400); RDW Coefficient of Variation 12.8 % (11.5-14.5); RDW Standard Deviation 41.3 fL (36.4-46.3); Red Blood Count 4.03 M/uL (4.7-6.1); White Blood Count 9.86 K/uL (4.8-10.8)
[2020-05-01 07:43] LABS: BUN Creatinine Ratio 8.1 (10-20); Calcium 8.2 mg/dl (8.5-10.1); Creatinine Clr Calc Pharmacy 111.4 ml/min; Est GFR (African American) 117.5; Est GFR (Non-African American) 101.4; Potassium 3.8 mmol/L (3.5-5.1)
[2020-05-01] MEDS: metroNIDAZOLE 500 MG/100 ML BAG IV SCH ×2 (08:29→17:50)
--- NOTE | 2020-05-01 08:58 | Gastroenterology Progress Note ---
Date of Service May 01, 2020 Assessment & Plan (1) Acute pancreatitis: 49 year old male with history of unspecified ALFONSO s/p negative EGD/Colon/VCE in 2012 and 2014 admitted w/ abnormal CTAP inflammatory stranding within the left upper quadrant involving the pancreatic tail and colon at the splenic flexure, favor pancreatitis with reactive change of the adjacent colon His onset and symptoms are generalized abdominal pain, food aversion, nausea w/o vomiting and fevers at home NPO EUS/ERCP today pending discussion with attending LR 200 mL/hr for 48 hours Analgesia PRN Antiemetics PRN Will need OP colonoscopy in about 4-6 weeks w/ Dr. Glez Thank you for allowing us to participate in the care of this patient. Please call with any acute changes, questions or concerns. Please see addendum below with additional recommendation from my supervising physician. Admission and Anticipated Discharge Date Admission Date: April 30, 2020 Supervising Physician Co-Signing Physician Notes I saw and evaluated the patient. He presented with pancreatitis and underwent MRCP which showed a meniscus sign in the distal duct. Interestingly his liver enzymes are within normal limits. Given this we will proceed with upper endoscopy and endoscopic ultrasound for further evaluation. If a gallstone is seen within the common bile duct we will then proceed with ERCP. We have discussed the risks and benefits to include bleeding, infection, perforation, pancreatitis and failed biliary cannulation Subjective Feeling slightly better. Less pain No nausea/vomiting. No BM. MRCP reviewed, ?meniscus sign Review of Systems Constitutional: no fever, no chills and no fatigue Respiratory: no cough and no dyspnea Cardiovascular: no chest pain and no dyspnea Gastrointestinal: + abdominal pain; no coffee ground emesis, no hematemesis, no blood in stools and no melena Physical Exam Constitutional: well developed and well nourished; no acute distress and not ill appearing Respiratory: normal respiratory effort, lungs clear to auscultation Cardiovascular: Rate/Rhythm: regular rate Gastrointestinal (Abdomen): Percussion/Palpation: + abdomen tender and abdomen soft; no guarding and abdomen not rigid Skin: no rashes, warm and dry Results & Data ([facility]) Vital Signs (Past 12 Hours) Vital Signs Temp Pulse Resp BP Pulse Ox 05/01/20 07:16 37.0 C 70 16 111/66 95 05/01/20 00:15 37.4 C 71 14 128/69 95 (1) Acute pancreatitis Acute pancreatitis complication: unspecified Pancreatitis type: unspecified pancreatitis type Qualified Code(s): K85.90 - Acute pancreatitis without necrosis or infection, unspecified
[2020-05-01] MEDS: PANTOprazole 40 MG TAB PO SCH (11:52)
[2020-05-01] MEDS: DICYCLOMINE HCL 10 MG CAP PO SCH ×3 (11:52→21:07)
--- NOTE | 2020-05-01 12:55 | Anesthesiology Consultation ---
Date of Service May 01, 2020 Assessment & Plan (1) Encounter for pre-operative examination: Chart Review Chart Review: Acceptable Risk for Surgery and Patient NOT seen in Pre Admission Testing Consults Requested none History Surgery Operation Date: 05/01/20 12:55 Proposed Procedures p Upper Endoscopic Ultrasonography - Cory Glez s Endoscopic Retrograde Cholangiopancreatogram - Cory Glez Height/Weight Height: 6 ft Weight: 89.5 kg Allergies Allergy/AdvReac Type Severity Reaction Status Date / Time Cephalosporins AdvReac Mild MEFOXIN-ITCHING Verified 04/29/20 20:49 (MAY BE DUE TO TORADOL,BODYWASH,DETERGENT) ketorolac AdvReac Mild ITCHING/RASH Verified 04/29/20 20:49 (MAY BE DUE TO MEFOXIN,BODYWASH,DETERGENT) Medications Home Medications Medication Instructions Recorded Confirmed Last Taken albuterol sulfate [ProAir HFA] 2 puff INHALATION QID PRN 11/24/18 04/29/20 Unknown azelastine 2 spray INTRANASAL HS 04/29/20 04/29/20 04/28/20 cetirizine [Zyrtec] 10 mg PO HS 04/29/20 04/29/20 04/28/20 ferrous sulfate [iron] 325 mg PO HS 04/29/20 04/29/20 04/28/20 fluticasone propionate 1 spray INTRANASAL 04/29/20 04/29/20 04/28/20 lorazepam 0.5 mg PO DAILY PRN 04/29/20 04/29/20 Unknown zolpidem 10 mg PO HS PRN 04/29/20 04/29/20 Unknown Active Medications Generic Name Dose Route Start Last Admin Trade Name Monchoq PRN Reason Stop Dose Admin Acetaminophen 650 mg 04/29/20 21:11 04/30/20 23:38 Tylenol PO 05/29/20 21:10 650 mg Q4H PRN Administration pain/fever Cetirizine HCl 10 mg 04/30/20 21:00 04/30/20 20:48 Zyrtec PO 05/30/20 20:59 10 mg HS SEBASTIÁN Administration Dicyclomine HCl 10 mg 04/30/20 21:00 05/01/20 11:52 Bentyl PO 05/30/20 20:59 Not Given TID SEBASTIÁN Ferrous Sulfate 325 mg 04/30/20 21:00 04/30/20 20:48 Feosol PO 05/30/20 20:59 Not Given HS SEBASTIÁN Fluticasone Propionate 1 sprays 04/30/20 21:00 04/30/20 20:48 Flonase NA 05/30/20 20:59 1 sprays HS SEBASTIÁN Administration Hydromorphone HCl 0.5 mg 04/30/20 12:36 04/30/20 19:53 Dilaudid IV 05/14/20 12:35 0.5 mg Q4H PRN Administration Severe Pain Lactated Ringer's 1,000 mls @ 200 mls/hr 04/30/20 12:00 05/01/20 11:50 Lr IV 05/30/20 11:59 200 mls/hr .Q5H SEBASTIÁN Administration Ciprofloxacin 400 mg in 200 mls @ 100 mls/hr 04/30/20 16:00 05/01/20 06:19 Cipro / D5w IV 05/10/20 15:59 Infused Q12H SEBASTIÁN Infusion Protocol Metronidazole 500 mg in 100 mls @ 100 mls/hr 04/30/20 16:00 05/01/20 09:29 Flagyl IV 05/10/20 15:59 Infused Q8H SEBASTIÁN Infusion Protocol Acetaminophen 1,000 mg in 100 mls @ 400 mls/hr 04/30/20 22:00 05/01/20 06:38 Ofirmev IV 05/03/20 21:59 Infused Q8H SEBASTIÁN Infusion Miscellaneous 1 ea 04/30/20 00:00 05/01/20 08:29 Order Awaiting Action N/A 05/30/20 00:00 Not Given QS SEBASTIÁN Ondansetron HCl 4 mg 04/29/20 21:28 04/30/20 19:22 Zofran IV 05/29/20 21:27 4 mg Q6H PRN Administration Nausea Oxycodone HCl 5 mg 04/30/20 02:56 05/01/20 04:22 Roxicodone Immediate Rel PO 05/14/20 02:55 5 mg Q4H PRN Administration Pain Pantoprazole Sodium 40 mg 04/29/20 21:35 05/01/20 11:52 Protonix PO 05/29/20 21:34 Not Given QAM SEBASTIÁN NPO Date Last Intake of Fluids: 04/29/20 Date Last Intake of Solids: 04/29/20 Time Last Intake of Solids: 00:01 Past Medical History Medical History Environmental allergies Eosinophilic esophagitis Intermittent asthma Prediabetes Exercise / Class Metabolic Activity II 4-5 Yardwork/Stairs/Walk up hill Past Family History Family History Mother Lung cancer Past Surgical History Surgical History H/O adenoidectomy H/O arthroscopic knee surgery History of arthroscopy of right shoulder Hx of appendectomy (Resolved) Past Anesthesia History No Hx of Anesthesia Complications and No Family Hx of Anesthesia Complications History of PONV No Hx of PONV and No Hx of Motion Sickness Social History Smoking Status: Never smoker Do You Dip or Chew Tobacco: No Hx Alcohol Use: Yes Alcohol type: beer alcohol intake frequency: a few times a week Hx Substance Use: No substance use type: does not use Physical Exam Vital Signs Last Vital Signs Temp 36.9 C 05/01/20 12:24 Pulse 96 H 05/01/20 12:24 Resp 20 05/01/20 12:24 BP 126/74 05/01/20 12:24 Pulse Ox 96 05/01/20 12:24 Testing Laboratory Results 05/01/20 06:47 05/01/20 06:47
[2020-05-01] MEDS ORDERED: fentaNYL citrate 100 MCG/2 ML VIAL IV PRN (13:10)
[2020-05-01] MEDS ORDERED: HYDROmorphone INJ 1 MG/ML SYRINGE IV PRN (13:10)
[2020-05-01] MEDS ORDERED: ATROPINE SULFATE 0.1 MG/ML 10ML SYR IV PRN (13:10)
[2020-05-01] MEDS ORDERED: ONDANSETRON INJ 2 MG/ML 2 ML VIAL IV PRN (13:10)
[2020-05-01] MEDS ORDERED: ePHEDrine sulfate 50 MG/ML AMP IV PRN (13:10)
[2020-05-01] MEDS ORDERED: fentaNYL citrate 100 MCG/2 ML VIAL ONE (13:12)
[2020-05-01] MEDS ORDERED: LIDOCAINE HCL 2% 2 ML VIAL/AMP(20MG/ML) INFIL ONE (13:12)
[2020-05-01] MEDS ORDERED: PROPOFOL IV EMULSION 10 MG/ML 20 ML VIAL IV ONE (13:12)
[2020-05-01] MEDS ORDERED: MIDAZOLAM HCL 1 MG/ML 2ML VIAL ONE (13:12)
--- NOTE | 2020-05-01 13:12 | History & Physical Bridge Note ---
Date of Service May 01, 2020 History & Physical Bridge Note I have examined the patient, reviewed the History & Physical and in the interval since the performance of the History & Physical I have noted the following changes of clinical significance: no changes noted. We have discussed the risks as described in my other note to include bleeding, infection, perforation, pancreatitis and need for follow-up studies.
[2020-05-01] MEDS ORDERED: SUCCINYLCHOLINE CHLORIDE 20 MG/ML 10 ML VIAL IV ONE (13:17)
[2020-05-01] MEDS ORDERED: INDOMETHACIN 50 MG SUPP PR ONE (13:35)
[2020-05-01] MEDS ORDERED: ONDANSETRON INJ 2 MG/ML 2 ML VIAL ONE (13:48)
--- NOTE | 2020-05-01 13:50 | GI REPORT ---
Patient Name: Saleem Ibarra Procedure Date: 05/01/2020 1:41 PM Date of : 1970 Admit Type: Inpatient Age: 49 Gender: Male Attending MD: Cory Glez DO Procedure: Upper GI endoscopy Providers: Cory Glez DO Referring MD: Joy Doll Do Indications: Epigastric abdominal pain Medicines: General Anesthesia Complications: No immediate complications. Estimated blood loss: Minimal. Estimated Blood Loss: Estimated blood loss was minimal. Procedure: Pre-Anesthesia Assessment: - Prior to the procedure, a History and Physical was performed, and patient medications, allergies and sensitivities were reviewed. The patient's tolerance of previous anesthesia was reviewed. - The risks and benefits of the procedure and the sedation options and risks were discussed with the patient. All questions were answered and informed consent was obtained. - Patient identification and proposed procedure were verified prior to the procedure by the physician, the nurse and the evaporative cooler installer. The procedure was verified in the procedure room. - Pre-procedure physical examination revealed no contraindications to sedation. - ASA Grade Assessment: II - A patient with mild systemic disease. - After reviewing the risks and benefits, the patient was deemed in satisfactory condition to undergo the procedure. - The anesthesia plan was to use general anesthesia. - Immediately prior to administration of medications, the patient was re-assessed for adequacy to receive sedatives. - The heart rate, respiratory rate, oxygen saturations, blood pressure, adequacy of pulmonary ventilation, and response to care were monitored throughout the procedure. - The physical status of the patient was re-assessed after the procedure. After obtaining informed consent, the endoscope was passed under direct vision. Throughout the procedure, the patient's blood pressure, pulse, and oxygen saturations were monitored continuously. The Endoscope was introduced through the mouth, and advanced to the third part of duodenum. The upper GI endoscopy was accomplished without difficulty. The patient tolerated the procedure well. Findings: The examined esophagus was normal. The Z-line was regular and was found 44 cm from the incisors. A single 6 mm sessile polyp with no bleeding and no stigmata of recent bleeding was found in the gastric fundus. The polyp was removed with a cold biopsy forceps. Resection and retrieval were complete. The pathology specimen was placed into Bottle A. Estimated blood loss was minimal. The gastric body, incisura and gastric antrum were normal. The examined duodenum was normal. Impression: - Normal esophagus. - Z-line regular, 44 cm from the incisors. - A single gastric polyp. Resected and retrieved. - Normal gastric body, incisura and antrum. - Normal examined duodenum. Recommendation: - Perform an upper endoscopic ultrasound (UEUS) today. - Await pathology results. Cory Glez D.O. Cory Glez, 05/01/2020 1:50:12 PM This report has been signed electronically. Note Initiated On: 05/01/2020 1:41 PM Number of Addenda: 0 I attest to the content of the Intraoperative Record and orders documented therein, exceptions below {[id number]}
[2020-05-01] MEDS ORDERED: DEXAMETHASONE SOD INJ 4 MG/ML VIAL ONE (13:53)
--- NOTE | 2020-05-01 14:13 | Post Operative Brief Note ---
Immediate Post Op Note v1 Date of Surgery May 01, 2020 Pre & Post Diagnosis Operation Date: 05/01/20 12:55 Pre-Op Diagnosis: common bile duct stone; abnormal MRI Post-Op Diagnosis: nomal common bile duct, gallbladder sludge; abnormal MRI; 5 mm pancreatic cyst I identified the patient and participated in the time-out.: Yes Procedure Operation Date: 05/01/20 12:55 Actual Procedures p Esophagogastroduodenoscopy; Upper Endoscopic Ultrasonography(Not Applicable) - Cory Glez Surgeon Cory Glez Complaint Analyst none Estimated Blood Loss 0 Findings Consistent with Post-Op Diagnosis
--- NOTE | 2020-05-01 14:20 | GI REPORT ---
Patient Name: Saleem Ibarra Procedure Date: 05/01/2020 1:50 PM Date of : 1970 Admit Type: Inpatient Age: 49 Gender: Male Attending MD: Cory Glez DO Procedure: Upper EUS Providers: Cory Glez DO Referring MD: Romero Doll Indications: Abnormal abdominal MRI, Suspected choledocholithiasis, Acute pancreatitis Medicines: General Anesthesia Complications: No immediate complications. Estimated blood loss: Minimal. Estimated Blood Loss: Estimated blood loss was minimal. Procedure: Pre-Anesthesia Assessment: - Prior to the procedure, a History and Physical was performed, and patient medications, allergies and sensitivities were reviewed. The patient's tolerance of previous anesthesia was reviewed. - The risks and benefits of the procedure and the sedation options and risks were discussed with the patient. All questions were answered and informed consent was obtained. - Patient identification and proposed procedure were verified prior to the procedure by the physician, the nurse and the employment and claims aide. The procedure was verified in the procedure room. - Pre-procedure physical examination revealed no contraindications to sedation. - ASA Grade Assessment: II - A patient with mild systemic disease. - After reviewing the risks and benefits, the patient was deemed in satisfactory condition to undergo the procedure. - The anesthesia plan was to use general anesthesia. - Immediately prior to administration of medications, the patient was re-assessed for adequacy to receive sedatives. - The heart rate, respiratory rate, oxygen saturations, blood pressure, adequacy of pulmonary ventilation, and response to care were monitored throughout the procedure. - The physical status of the patient was re-assessed after the procedure. After obtaining informed consent, the endoscope was passed under direct vision. Throughout the procedure, the patient's blood pressure, pulse, and oxygen saturations were monitored continuously. The Endosonoscope was introduced through the mouth, and advanced to the third part of duodenum. The upper EUS was accomplished without difficulty. The patient tolerated the procedure well. Findings: ENDOSONOGRAPHIC FINDING: : There was no sign of significant endosonographic abnormality in the ampulla. No masses and no cysts were identified. There was no sign of significant endosonographic abnormality in the common bile duct. The maximum diameter of the duct was 6 mm. No stones and no biliary sludge were identified. Moderate hyperechoic material consistent with sludge was visualized endosonographically in the gallbladder. The gallbladder wall was thickened measuring 2.4 mm. There was no sign of significant endosonographic abnormality in the visualized portion of the liver. Homogeneous parenchyma and no focal pathology were identified. No lymphadenopathy seen. There was no sign of significant endosonographic abnormality in the pancreatic head, pancreatic body and pancreatic tail. The pancreatic duct was thin in caliber. A hypoechoic lesion suggestive of a cyst was identified in the pancreatic neck. It is not in obvious communication with the pancreatic duct. The lesion measured 5 mm by 4 mm in maximal cross-sectional diameter. There was a single compartment without septae. The outer wall of the lesion was not seen. There was no internal debris within the fluid-filled cavity. Impression: - There was no sign of significant pathology in the ampulla. - There was no sign of significant pathology in the common bile duct. - Hyperechoic material consistent with sludge was visualized endosonographically in the gallbladder. - There was no evidence of significant pathology in the visualized portion of the liver. - There was no sign of significant pathology in the pancreatic head, pancreatic body and pancreatic tail. - A cystic lesion was seen in the pancreatic neck. - No specimens collected. Recommendation: - [facility]. - Advance diet as tolerated today. - Refer to a surgeon at appointment to be scheduled. - Repeat the upper endoscopic ultrasound in 6 months for surveillance. Cory Glez D.O. Cory Glez, 05/01/2020 2:20:22 PM This report has been signed electronically. Note Initiated On: 05/01/2020 1:50 PM Number of Addenda: 0 I attest to the content of the Intraoperative Record and orders documented therein, exceptions below {[id number]}
--- NOTE | 2020-05-01 14:53 | Communication Note ---
Date of Service: May 01, 2020 the patient underwent egd/eus today for a quesiton of an abnormal MRCP in setting of pancreatitis. Findings: EGD normal appearing EUS 6 mm cbd, layering sludge in the GB, 6 mm pancreatic cyst Reccomendations: General surgery consultation (discuss timing of cholecystectomy) repeat EUS in 6 months to follow the cyst advance to full liquids today then as tolerated please call with any questions or concerns
--- NOTE | 2020-05-01 15:16 | Surgery Consultation ---
Date of Consultation May 01, 2020 Assessment & Plan (1) Acute pancreatitis: 49 year-old male presented to ED on 04/29/2020 with epigastric abd pain, nausea without vomiting and anorexia. Outpatient CT scan showing acute pancreatitis. Gallbladder US unremarkable without gallstones. MRCP showed possible distal CBD cutoff. EGD/EUS 05/01/2020 showing gallbladder sludge, normal CBD, and 6 mm pancreatic cyst. No leukocytosis, afebrile today. Lipase wnl 04/30/2020. Secondary to gallbladder sludge vs alcohol induced?? Plan: Discussed EUS findings with patient of having gallbladder sludge. Can consider outpatient cholecystectomy as there are no signs of acute cholecystitis on imaging or labs if pain improves. If pain continues or increases would consider inpatient cholecystectomy this weekend by Dr. Maria G Glez. Full liquids per GI Recommend low fat diet on discharge if outpatient cholecystectomy is planned Continue medical management (2) Gallbladder sludge: no signs of acute cholecystitis or biliary obstruction s/p EGD/EUS today. Plan as above Dr. Glez to evaluate patient later today, please see addendum for further recommendations/plan. Supervising Physician Co-Signing Physician Notes I personally saw and examined the patient. Currently, abdominal exam is benign, lipase is improving, symptoms are better and he is hungry. Will try to advance diet - if tolerates, will plan on discharge and lap cholecystectomy next 1-2 weeks. History of Present Illness Reason for Consultation: Gallbladder sludge s/p EGD/EUS Discuss cholecystectomy Requesting Physician: Dr. Cory Glez Attending Physician: Joy Clinton, History of Present Illness Saleem is a 49 year-old male who presented to emergency department on 04/29 with abdominal pain and outpatient CT scan showing evidence of acute pancreatitis. Abdominal pain mostly in the epigastric region with radiation to his back. He had associated nausea but no vomiting. He had gallbladder ultrasound which was unremarkable. Underwent MRCP which showed possible distal common bile duct cutoff and therefore underwent EGD/EUS today which showed layering sludge in gallbladder, normal common bile duct and 6 mm pancreatic cyst. Our services consulted for discussion of timing of cholecystectomy. He states that he has noticed some abdominal bloating postprandial especially after eating fatty foods. Does not happen every time he eats. Occasional heartburn/reflux symptoms as well. There is a history of alcohol intake about 1 beer per night 5-6 days/week and then will go days without a drink. Usually just with dinner. Looking back in chart he also had gallbladder ultrasound in November of 2018 which was unremarkable and did not show stones at that time as well. States he was emergency department last year and diagnosis with mesenteric adenitis. Allergies Allergy/AdvReac Type Severity Reaction Status Date / Time Cephalosporins AdvReac Mild MEFOXIN-ITCHING Verified 04/29/20 20:49 (MAY BE DUE TO TORADOL,BODYWASH,DETERGENT) ketorolac AdvReac Mild ITCHING/RASH Verified 04/29/20 20:49 (MAY BE DUE TO MEFOXIN,BODYWASH,DETERGENT) Home Medications Home Medications Medication Instructions Recorded Confirmed Type albuterol sulfate [ProAir HFA] 2 puff INHALATION QID PRN 11/24/18 04/29/20 History azelastine 2 spray INTRANASAL HS 04/29/20 04/29/20 History cetirizine [Zyrtec] 10 mg PO HS 04/29/20 04/29/20 History ferrous sulfate [iron] 325 mg PO HS 04/29/20 04/29/20 History fluticasone propionate 1 spray INTRANASAL HS 04/29/20 04/29/20 History lorazepam 0.5 mg PO DAILY PRN 04/29/20 04/29/20 History zolpidem 10 mg PO HS PRN 04/29/20 04/29/20 History Patient History Medical History Environmental allergies Eosinophilic esophagitis Intermittent asthma Prediabetes Surgical History H/O adenoidectomy H/O arthroscopic knee surgery History of arthroscopy of right shoulder Hx of appendectomy (Resolved) Family History Mother Lung cancer Social History Preferred Language: Amharic Communication Ability: Effective Entry Level Lab Technician Required: No Beliefs That Will Affect Care: None Current Living Situation: Spouse Other Information That Helps Us Care for You: No Feels Safe at Home: Yes Safety Concerns: Feels Safe At This Time Smoking Status: Never smoker Do You Dip or Chew Tobacco: No ; Second Hand Exposure: No ; Hx Alcohol Use: Yes Alcohol type: beer Alcohol Intake Frequency: Weekly Hx Substance Use: No Review of Systems Review of Systems: All systems reviewed & are unremarkable except as noted in HPI & below Physical Exam Constitutional: WD/WN, vitals as above no acute distress and not ill appearing Respiratory: normal respiratory effort, lungs clear to auscultation Cardiovascular: RRR, no murmur, no edema Gastrointestinal (Abdomen): Inspection/Auscultation: abdomen normal to inspection and normal bowel sounds; abdomen not distended Percussion/Palpation: + abdomen tender (mild in RLQ) and abdomen soft; no guarding and abdomen not rigid Skin: no rashes, warm and dry Psychiatric: A+Ox3, euthymic affect Results & Data Vital Signs (Past 12 Hours) Vital Signs Temp Pulse Pulse Pulse Resp BP BP 05/01/20 15:00 37.3 C 74 20 124/66 05/01/20 14:50 71 10 L 140/72 05/01/20 14:44 36.1 C L 76 18 125/73 05/01/20 12:24 36.9 C 96 H 76 20 126/74 05/01/20 07:16 37.0 C 70 16 111/66 Pulse Ox 05/01/20 15:00 98 05/01/20 14:50 100 05/01/20 14:44 100 05/01/20 12:24 96 05/01/20 07:16 95 Laboratory Results 05/01/20 05/01/20 05/01/20 Range/Units 06:47 06:47 06:47 WBC 9.86 (4.8-10.8) K/uL RBC 4.03 L (4.7-6.1) M/uL Hgb 12.5 L (14.0-18.0) g/dL Hct 36.0 L (42-52) % MCV 89.3 (80-100) fL MCH 31.0 (25-34) pg MCHC 34.7 (32-36) g/dL RDW Std Deviation 41.3 (36.4-46.3) fL RDW Coeff of Kosta 12.8 (11.5-14.5) % Plt Count 148 (130-400) K/uL MPV 9.8 (7.4-10.4) fL Sodium 138 (136-145) mmol/L Potassium 3.8 (3.5-5.1) mmol/L Chloride 107 (98-107) mmol/L Carbon Dioxide 28 (21-32) mmol/L Anion Gap 4.0 (3-11) BUN 7 (7-18) mg/dl Creatinine 0.90 (0.6-1.4) mg/dl Est Cr Clr Drug Dosing 111.4 ml/min Est GFR ( Amer) 117.5 Est GFR (Non-Af Amer) 101.4 BUN/Creatinine Ratio 8.1 L (10-20) Glucose 101 H (70-99) mg/dl Calcium 8.2 L (8.5-10.1) mg/dl Triglycerides 81 (0-150) mg/dl IgG 846.0 (700-1600) mg/dl ALMA Screen Pending Diagnostic Findings US gallbladder HISTORY: Pain. Nausea. ro rocio COMPARISON: None. FINDINGS: Normal gallbladder. Common bile duct 5 mm. Slight fatty replacement of the liver. Pancreas and right kidney are unremarkable. IMPRESSION: 1. Minimal fatty infiltration the liver. 2.. Otherwise negative study. MR MRCP CLINICAL HISTORY: pancreatitis COMPARISON STUDY: Biliary ultrasound dated 04/29/2020, CT scan dated 03/26/2014 FINDINGS: A breath-hold MRCP was performed. MIP images were acquired. No focal hepatic masses are visualized. There is no intrahepatic biliary ductal dilatation. The common bile duct measures 5 mm. There is a distal common bile duct meniscus sign, but no definite filling defects are visualized. No gallstones are evident. There is no evidence of pancreatic ductal dilatation. The pancreatic tail appears edematous, and there is peripancreatic inflammatory changes. There is trace left perinephric fluid. IMPRESSION: 1. No gallstones identified 2. No evidence of biliary or pancreatic ductal dilatation 3. Linear cutoff of the distal common bile duct just proximal to the ampulla. While this can be seen in the presence of a distal calculus, a definite filling defect is not visualized. Addition there is no ductal dilatation. 4. Edematous pancreatic tail and peripancreatic inflammatory changes consistent with acute interstitial pancreatitis (1) Acute pancreatitis Acute pancreatitis complication: unspecified Pancreatitis type: unspecified pancreatitis type Qualified Code(s): K85.90 - Acute pancreatitis without ne crosis or infection, unspecified
--- NOTE | 2020-05-01 15:38 | Anesthesiology Progress Note ---
Date of Service May 01, 2020 Anesthesia Post Procedure Vital Signs Vital Signs: Temp Pulse Pulse Pulse Resp BP BP 05/01/20 15:20 37.3 C 68 13 127/69 05/01/20 15:10 37.3 C 70 8 L 127/67 05/01/20 15:00 37.3 C 74 20 124/66 05/01/20 14:50 71 10 L 140/72 05/01/20 14:44 36.1 C L 76 18 125/73 05/01/20 12:24 36.9 C 96 H 76 20 126/74 05/01/20 07:16 37.0 C 70 16 111/66 05/01/20 00:15 37.4 C 71 14 128/69 04/30/20 15:44 37.4 C 69 16 134/76 Pulse Ox 05/01/20 15:20 94 05/01/20 15:10 94 05/01/20 15:00 98 05/01/20 14:50 100 05/01/20 14:44 100 05/01/20 12:24 96 05/01/20 07:16 95 05/01/20 00:15 95 04/30/20 15:44 97 Pain Intensity Abdomen: Pain Intensity: 3 Transfer of Care Handoff Completed per policy Notes Mental Status: alert / awake / arousable and participated in evaluation Patient Amnestic to Procedure: Yes Nausea / Vomiting: adequately controlled Pain: adequately controlled Airway Patency, RR, SpO2: stable & adequate BP & HR: stable & adequate Hydration State: stable & adequate Anesthetic Complications: no major complications apparent and Pt Satisfied with anesthetic care
--- NOTE | 2020-05-01 19:11 | Hospitalist Progress Note ---
Date of Service May 01, 2020 Assessment & Plan (1) Acute pancreatitis: EGD/EUS today for a question of an abnormal MRCP in setting of pancreatitis. EGD was normal, EUS revealed layering sludge in the gallbladder and a 6mm pancreatic cust. Surgery was consulted with recommendations for lap rocio. Pt currently tolerating his dinner, so this may be able to be performed as outpatient with Dr. Glez next week. If severe pain overnight, consider more emergent inpatient lap rocio over the weekend. A repeat EUS is recommedned in 6 months to follow the cyst. (2) Acute diverticulitis: Cipro/flagyl (3) Gallbladder sludge: per plan above. (4) Pancreatic cyst: repeat EUS in 6 months for monitoring. (5) Gastric polyp: path pending. (6) DVT prophylaxis: Lovenox Full Dispo-home when pain improved and tolerating PO Joy Clinton DO [place] Hospitalist Admission and Anticipated Discharge Date Admission Date: April 30, 2020 Subjective feels better today EUS/ERCP-biliary sludge Surgery consult-pt tolerating clears well this evening-if pain extreme may perform surgery as inpatient over the weekend. Otherwise outpatient lap rocio recommended. Pain controlled on APAP. No BM-requesting Miralax Review of Systems Review of Systems: All systems reviewed & are unremarkable except as noted in Subjective Physical Exam Physical Exam: CONSTITUTIONAL: WNWD, vitals as above, generally well- appearing EYES: normal conjunctivae, no scleral icterus ENT: external ear and nose normal RESPIRATORY: clear to auscultation bilaterally, no crackles, rales or wheezes, normal respiratory effort CARDIOVASCULAR: regular rate and rhythm, S1 and 2 heard without murmurs, gallops or rubs, no JVD, no peripheral edema GASTROINTESTINAL: soft, nontender, nondistended MUSCULOSKELETAL: strength 5/5 throughout, head is normocephalic and atraumatic SKIN: warm and dry NEUROLOGIC: No facial palsy, no dysarthria. CN 2-12 grossly intact, normal cognition, normal speech, no tremor. No gross focal deficits. PSYCHIATRIC: alert cooperative and oriented to person, place and time. Results & Data Results & Data ([facility]) Vital Signs (Past 12 Hours) Vital Signs Temp Pulse Pulse Pulse Resp BP BP 05/01/20 17:48 37.5 C 72 18 119/71 05/01/20 16:32 37.0 C 70 16 130/73 05/01/20 16:05 37.1 C 60 16 121/68 05/01/20 15:20 37.3 C 68 13 127/69 05/01/20 15:10 37.3 C 70 8 L 127/67 05/01/20 15:00 37.3 C 74 20 124/66 05/01/20 14:50 71 10 L 140/72 05/01/20 14:44 36.1 C L 76 18 125/73 05/01/20 12:24 36.9 C 96 H 76 20 126/74 05/01/20 07:16 37.0 C 70 16 111/66 Pulse Ox 05/01/20 17:48 95 05/01/20 16:32 93 05/01/20 16:05 95 05/01/20 15:20 94 05/01/20 15:10 94 05/01/20 15:00 98 05/01/20 14:50 100 05/01/20 14:44 100 05/01/20 12:24 96 05/01/20 07:16 95 Laboratory Results Short CBC 05/01/20 Range/Units 06:47 WBC 9.86 (4.8-10.8) K/uL Hgb 12.5 L (14.0-18.0) g/dL Hct 36.0 L (42-52) % Plt Count 148 (130-400) K/uL BMP 05/01/20 06:47 Sodium 138 Potassium 3.8 Chloride 107 Carbon Dioxide 28 BUN 7 Creatinine 0.90 Glucose 101 H Calcium 8.2 L Medications Administered Current Inpatient Medications Acetaminophen (Tylenol) 650 mg PO Q4H PRN PRN Reason: pain/fever Stop: 05/29/20 21:10 Last Admin: 04/30/20 23:38 Dose: 650 mg Documented by: Cetirizine HCl (Zyrtec) 10 mg PO HS SEBASTIÁN Stop: 05/30/20 20:59 Last Admin: 04/30/20 20:48 Dose: 10 mg Documented by: Ciprofloxacin (Cipro) 500 mg PO BID SEBASTIÁN Stop: 05/11/20 20:59 Dicyclomine HCl (Bentyl) 10 mg PO TID SEBASTIÁN Stop: 05/30/20 20:59 Last Admin: 05/01/20 16:40 Dose: 10 mg Documented by: Ferrous Sulfate (Feosol) 325 mg PO HS [facility] Stop: 05/30/20 20:59 Last Admin: 04/30/20 20:48 Dose: Not Given Documented by: Fluticasone Propionate (Flonase) 1 sprays NA HS [facility] Stop: 05/30/20 20:59 Last Admin: 04/30/20 20:48 Dose: 1 sprays Documented by: Hydromorphone HCl (Dilaudid) 0.5 mg IV Q4H PRN PRN Reason: Severe Pain Stop: 05/14/20 12:35 Last Admin: 04/30/20 19:53 Dose: 0.5 mg Documented by: Metronidazole (Flagyl) 500 mg PO TID [facility] Stop: 05/12/20 08:59 Miscellaneous (Order Awaiting Action) 1 ea N/A QS [facility] Stop: 05/30/20 00:00 Last Admin: 05/01/20 17:40 Dose: Not Given Documented by: Ondansetron HCl (Zofran) 4 mg IV Q6H PRN PRN Reason: Nausea Stop: 05/29/20 21:27 Last Admin: 04/30/20 19:22 Dose: 4 mg Documented by: Pantoprazole Sodium (Protonix) 40 mg PO QAM [facility] Stop: 05/29/20 21:34 Last Admin: 05/01/20 11:52 Dose: Not Given Documented by: Polyethylene Glycol (Miralax Powder Packet) 17 gm PO DAILY PRN PRN Reason: Constipation Stop: 05/31/20 19:07 (1) Acute pancreatitis Acute pancreatitis complication: unspecified Pancreatitis type: unspecified pancreatitis type Qualified Code(s): K85.90 - Acute pancreatitis without necrosis or infection, unspecified
[2020-05-01] MEDS: POLYETHYLENE (MIRALAX) 17 GM PACK PO PRN (19:40)
[2020-05-01] MEDS: FLUTICASONE PROPIONATE NA SPR 16 GM BTL SCH (21:06)
[2020-05-01] MEDS: FERROUS SULFATE 325 MG TAB PO SCH (21:07)
[2020-05-01] MEDS: CETIRIZINE HCL 10 MG TABLET PO SCH (21:07)
[2020-05-01] MEDS: CIPROFLOXACIN 500 MG TAB PO SCH (22:26)
[2020-05-02] MEDS: POLYETHYLENE (MIRALAX) 17 GM PACK PO PRN (08:51)
--- NOTE | 2020-05-02 08:51 | Surgery Progress Note ---
Date of Service May 02, 2020 Assessment & Plan (1) Acute pancreatitis: Improved. Would plan on discharge today and I will get him scheduled for outpatient clyde chan at [facility]. He had questions about iron levels/ anemia - referred him to GI to discuss when he gets his f/u for his pancreatic cyst. Present on Admission?: Yes (2) Gallbladder sludge: Subjective Tolerating full liquids. No further abdominal pain or nausea/ vomiting. Feels well. Review of Systems Review of Systems: All systems reviewed & are unremarkable except as noted in HPI & below Physical Exam Constitutional: WD/WN, vitals as above Gastrointestinal (Abdomen): normal bowel sounds, soft, nontender, no hepatosplenomegaly Inspection/Auscultation: abdomen normal to inspection Percussion/Palpation: abdomen nontender Results & Data Vital Signs (Past 12 Hours) Vital Signs Temp Pulse Pulse Resp BP BP Pulse Ox 05/02/20 07:20 36.6 C 59 L 16 116/64 96 05/01/20 23:32 37.1 C 65 14 113/58 L 94 (1) Acute pancreatitis Acute pancreatitis complication: unspecified Pancreatitis type: unspecified pancreatitis type Qualified Code(s): K85.90 - Acute pancreatitis without necrosis or infection, unspecified
[2020-05-02] MEDS: CIPROFLOXACIN 500 MG TAB PO SCH (08:52)
[2020-05-02] MEDS: metroNIDAZOLE 500 MG TAB PO SCH ×2 (08:52→14:01)
[2020-05-02] MEDS: DICYCLOMINE HCL 10 MG CAP PO SCH ×2 (08:52→15:09)
[2020-05-02] MEDS: PANTOprazole 40 MG TAB PO SCH (08:52)
--- NOTE | 2020-05-02 14:15 | Discharge Summary ---
Date of Service May 02, 2020 Admission HPI Per Admitting Provider 49-year-old male with PMH prediabetes, intermittent asthma, environmental allergies, no problems to below who presents to the ED for evaluation abdominal pain. Patient reports his symptoms began about 2 days ago. He reports the pain has mostly been located in his epigastric area with some radiation around the ribs and into his back. Initially, symptoms were mild however have been progressively getting worse. Patient was seen by PCP this morning and CT scan was ordered that showed signs of pancreatitis. Patient reports his pain significantly worsened throughout the day today. Patient reports nausea however no vomiting. Denies bright red bleeding per rectum or dark tarry stools. No fevers or chills. Patient reports 1 beer per night, about 5-6 nights per week. Last drink being 2 days ago. Patient denies any new medications. No chest pain or shortness of breath. Denies lightheadedness, dizziness, diaphoresis, syncopal events. No urinary symptoms. In the ED, labs show mildly elevated lipase at 566. Gallbladder ultrasound was unremarkable. Patient received IV Dilaudid, IV Zofran, IVF. Principal Diagnosis Acute pancreatitis 2/2 biliary sludge Acute diverticulitis Pancreatic cyst Discharge Exam CONSTITUTIONAL: WNWD, vitals as above, generally well-appearing EYES: normal conjunctivae, no scleral icterus ENT: external ear and nose normal RESPIRATORY: clear to auscultation bilaterally, no crackles, rales or wheezes, normal respiratory effort CARDIOVASCULAR: regular rate and rhythm, S1 and 2 heard without murmurs, gallops or rubs, no JVD, no peripheral edema GASTROINTESTINAL: soft, nontender, nondistended MUSCULOSKELETAL: strength 5/5 throughout, head is normocephalic and atraumatic SKIN: warm and dry NEUROLOGIC: No facial palsy, no dysarthria. CN 2-12 grossly intact, normal cognition, normal speech, no tremor. No gross focal deficits. PSYCHIATRIC: alert cooperative and oriented to person, place and time. Discharge Data Allergies Allergy/AdvReac Type Severity Reaction Status Date / Time Cephalosporins AdvReac Mild MEFOXIN-ITCHING Verified 04/29/20 20:49 (MAY BE DUE TO TORADOL,BODYWASH,DETERGENT) ketorolac AdvReac Mild ITCHING/RASH Verified 04/29/20 20:49 (MAY BE DUE TO MEFOXIN,BODYWASH,DETERGENT) Consultations 04/29/20 19:36 ED Decision to Admit Stat 04/29/20 21:11 Consult Gastroenterology Routine 05/01/20 14:23 Consult General Surgery Routine Procedures Performed Operation Date: 05/01/20 12:55 Actual Procedures p Esophagogastroduodenoscopy; Upper Endoscopic Ultrasonography(Not Applicable) - Cory Glez Ordered Studies 04/29/20 18:32 US gallbladder Stat 04/30/20 14:51 MR MRCP Routine 05/01/20 12:57 US upper EUS PACS images Routine Hospital Course (1) Acute pancreatitis: (2) Acute diverticulitis: (3) Gallbladder sludge: (4) Pancreatic cyst: (5) Gastric polyp: 49-year-old man presented with acute pancreatitis. He was placed on fluid resuscitation and admitted to the hospitalist service. GI was consulted and obtained an MRCP. This revealed a linear cut off of the distal common bile duct just proximal to the ampulla. As there was a question of a possible filling defect he underwent an EGD with upper endoscopic ultrasound on 05/01. There was no sign of significant pathology in the common bile duct, however, hyperechoic material consistent with sludge was visualized in the gallbladder. A hypoechoic lesion suggestive of a cyst was identified in the pancreatic neck which was approximately 5 to 6 mm in diameter. This was recommended to be monitored in 6 months. Additionally a gastric polyp was found and biopsied. Pathology was pending at the time of discharge. Autoimmune antibodies were also pending at the time of discharge, ordered by gastroenterology. As a result of the sludge that was seen, general surgery was consulted and recommended laparoscopic cholecystectomy as outpatient. The patient continued to improve and remained on Cipro and Flagyl to complete his course of antibiotics for questionable acute diverticulitis seen on CT scan prior to admission. He remained afebrile and hemodynamically stable. He tolerated oral food without any difficulty and was discharged home in stable condition with close primary care follow-up and close follow-up with [facility] general surgery, Dr. Maria G Glez for consideration of laparoscopic cholecystectomy in the next week. Total Time Total Time Spent Total Time Spent (In Minutes): 60 Total Time Includes: Examination of the Patient, Discharge Planning, Medication Reconciliation and Communication With Other Providers Discharge Plan Discharge Items Patient Disposition: Home - Self-Care Reason For Visit: PANCREATITIS Discharge Diagnosis: Acute pancreatitis 2/2 biliary sludge Acute diverticulitis Pancreatic cyst Condition on Discharge: Good Activity: Resume your previous activity Non-emergency contact: Primary Care Provider and Logistics Planner Call non-emergency contact if: you have any medication questions, your symptoms worsen, your pain is not controlled, your pain is worsening and you have a fever Follow-up/Referrals: Siddharth Turk MD [Primary Care Provider] - Diet: Low Fat Addtl Attending Provider Instructions: Please take all medications as instructed on discharge list below. Please continue to finish your course of antibiotics (cipro and flagyl) subtracting 3 days worth of pills from what you have remaining at home. It is recommended that you follow-up with your primary care physician within 1-2 weeks of hospital discharge to ensure you are doing well after returning home. As discussed, an outpatient gall bladder removal is recommended. It will be important to schedule this with [facility] General Surgery-Dr. Maria G Glez-after the weekend. You have a pancreatic cyst 6mm that was found on your endoscopic ultrasound. This will require a 6 month follow-up imaging study, which may be ordered through your GI doctor at [facility] Gastroenterology. A gastric polyp was found in you recent endoscopy, with final pathology pending at the time of discharge. Additionally there are some immunology lab tests, which have not returned. Please work with your GI physician or primary care physician to obtain the results of those which should result within the week. It was a pleasure taking care of you! Please call if you have any questions or problems. You can reach a [facility] hospitalist on duty at [facility] 24 hours a day by calling [phone]. Take care of yourself. Joy Clinton, DO [facility] Hospitalist Pending Studies at Discharge: Yes Studies:: pathology autoimmune labwork Stand-Alone Forms: My [facility] Health, Smoking Cessation Medications and DC Order Prescriptions: Continued cetirizine [Zyrtec] 10 mg Tablet 10 mg PO HS RF: 0 ferrous sulfate [iron] 325 mg (65 mg iron) Tablet 325 mg PO HS RF: 0 azelastine 137 mcg (0.1 %) aerosol,spray 2 spray INTRANASAL HS RF: 0 fluticasone propionate 50 mcg/actuation spray,suspension 1 spray INTRANASAL HS RF: 0 lorazepam 1 mg tablet 0.5 mg PO DAILY PRN (Reason: Anxiety) RF: 0 zolpidem 10 mg tablet 10 mg PO HS PRN (Reason: Insomnia) RF: 0 albuterol sulfate [ProAir HFA] 90 mcg/actuation HFA aerosol inhaler 2 puff Inhalation QID PRN (Reason: Cough/SOB or Wheeze) RF: 0 Discharge Orders: Discharge Order (Routine); Ordered 05/02/20 Ordered By: Joy Clinton Admission Data Admit Date/Time: 04/30/20 11:48 Attending Provider: Joy Clinton Admit Provider: Anton Jacob Primary Care Provider: Siddharth Turk Other Providers: Prem Mccallum ; Cory Glez ; Kamar Douglass ; Priya Reddy ; Maria G Glez ; Azael Ohara ; Eitan Braga ; Mary Lizama ; Jonny Fonseca ; Rebeka Munguia ; Dominic Skinner Jr ; Jian Edwards ; Faye Sanches
--- NOTE | 2020-05-03 19:06 | Communication Note ---
Date of Service: May 03, 2020 Contacted by patient post-discharge who reports dizziness as a side effect of Cipro/Flagyl at home. Pt was also out in the sun today and the temp was in the 90s. May have contributed, however, agreeable to switch to Augmentin x 7 more days. Transmitted electronically to his pharmacy. DO Oz
[2020-05-04 10:37] LABS: Anti Nuclear Antibody Screen NEGATIVE (NEGATIVE)
== END 2020-05-02 15:53 | disposition home or self-care (01) | DRG 439 ==
LOC: ED 17:50 → 3W 17:50 → SUATTDRO 20:22 → 3W 20:58